=== PATIENT | male | born 1995 | race Caucasian/White ===

== ENCOUNTER 2021-04-11 23:33 | Inpatient (IN) | payer MEDICAID ==
[~2021-04-11] VITALS: Ht 185.4 cm; Wt 136.5 kg
[2021-04-12] VITALS (619 sets, daily range): BP systolic 102–147; BP diastolic 60–98; PULSE 84–105; TEMP 97.4–99.1; O2SAT 64–97
[2021-04-12 00:06] LABS: BASO % 0.2 % (0.0-2.0); GRAN # 7.2 (1.4-6.5); GRAN % 80.4 % (42.2-75.2); HEMATOCRIT 50.6 % (42.0-52.0); HEMOGLOBIN 16.7 g/dl (13.5-18.0); LYMPH # 1.3 (1.2-3.4); MEAN CELL VOLUME 87 fl (80.0-100.0); MEAN CORPUSCULAR HEMOGLOBIN 29 pg (27.0-31.0); MEAN CORPUSCULAR HGB CONC 33 g/dl (33.0-37.0); MEAN PLATELET VOLUME 11.7 fl (7.4-10.4); MONO # 0.4 (0.1-0.6); MONO % 4.8 % (1.7-9.3); PLATELET COUNT 242 K/mm3 (130-400); RED BLOOD COUNT 5.84 M/mm3 (4.20-5.60); REDCELL DISTRIBUTION WIDTH-CV 14.4 % (11.5-14.5)
[2021-04-12 00:19] LABS: ALBUMIN 4.1 gm/dL (3.5-5.0); BILIRUBIN,TOTAL 0.7 mg/dL (0.0-1.0); C-REACTIVE PROTEIN 7.3 mg/dL (0.0-0.9); CALCIUM 8.2 mg/dL (8.4-10.2); CREATININE, serum 2.58 (0.66-1.25); POTASSIUM 3.8 mmol/L (3.4-5.0); TOTAL PROTEIN 8.5 gm/dL (6.4-8.2)
[2021-04-12 00:34] LABS: ARTERIAL BLD GAS O2 SATURATION 81.5 % (92-100); ARTERIAL BLD GAS TCO2 CT 23.9; ARTERIAL BLOOD GAS BASE EXCESS -1.9 (-2-2); ARTERIAL BLOOD GAS HCO3 22.7 meq/L (22-26); ARTERIAL BLOOD GAS PCO2 38.6 mmHg (35-45); ARTERIAL BLOOD GAS pH 7.39 (7.35-7.45)
[2021-04-12 00:35] LABS: ARTERIAL BLOOD GAS PO2 45.5 mmHg (80-100)
[2021-04-12 00:40] LABS: TROPONIN-I 0.024 ng/mL (0.000-0.035)
--- NOTE | 2021-04-12 02:05 | NUR ---
Pt arrived to ICU room 1 via cart with JAMEEL Santiago RN. Pt transferred from the cart to the ICU bed with the assistance of six. Pt oriented to room and call light system. Pt is sitting up in the bed at this time with the BiPAP in place. Call light within reach.
[2021-04-12 02:49] LABS: CALCIUM 7.8 mg/dL (8.4-10.2); CREATININE, serum 2.65 (0.66-1.25)
[2021-04-12 02:56] LABS: PARTIAL THROMBOPLASTIN TIME 38.3 SECONDS (26.0-37.0)
[2021-04-12 05:27] LABS: ARTERIAL BLD GAS O2 SATURATION 91.7 % (92-100); ARTERIAL BLD GAS TCO2 CT 23.6; ARTERIAL BLOOD GAS BASE EXCESS -4.4 (-2-2); ARTERIAL BLOOD GAS HCO3 22.2 meq/L (22-26); ARTERIAL BLOOD GAS PCO2 46.4 mmHg (35-45)
--- NOTE | 2021-04-12 07:26 | NUR ---
Bedside shift report given to AWAIS Tello.
--- NOTE | 2021-04-12 08:00 | NUR ---
Report received. Patient currently on Bipap at max settings SPO2 is at 88%. He does not appear to be in distress, but is tachypneic. Dr. Gaston aware of consult and patient situation.
--- NOTE | 2021-04-12 09:00 | NUR ---
Stephan Chawla and Eric notified of consults
[2021-04-12 09:03] LABS: BASO % 0.1 % (0.0-2.0); GRAN # 6.2 (1.4-6.5); GRAN % 84.3 % (42.2-75.2); HEMATOCRIT 47.6 % (42.0-52.0); HEMOGLOBIN 15.4 g/dl (13.5-18.0); LYMPH # 0.9 (1.2-3.4); LYMPH % 12.3 % (20.0-51.0); MEAN CELL VOLUME 89 fl (80.0-100.0); MEAN CORPUSCULAR HEMOGLOBIN 29 pg (27.0-31.0); MEAN CORPUSCULAR HGB CONC 32 g/dl (33.0-37.0); MEAN PLATELET VOLUME 12.1 fl (7.4-10.4); MONO # 0.2 (0.1-0.6); MONO % 2.8 % (1.7-9.3); PLATELET COUNT 186 K/mm3 (130-400); RED BLOOD COUNT 5.36 M/mm3 (4.20-5.60); REDCELL DISTRIBUTION WIDTH-CV 14.6 % (11.5-14.5)
[2021-04-12 09:21] LABS: CALCIUM 7.4 mg/dL (8.4-10.2); CREATININE, serum 2.3 (0.66-1.25); POTASSIUM 4.6 mmol/L (3.4-5.0)
--- NOTE | 2021-04-12 09:30 | NUR ---
Dr. Gaston orders intubation on this patient. Anesthesia called and Dr. Razo notified of need for TLC
--- NOTE | 2021-04-12 12:30 | NUR ---
Patient intubated by Rhea Kumar CRNA at approx 1151. Patient then received Art line from same NEWSPAPER CARRIER and Triple lumen Central line in left IJ from Dr. Razo. Dr. Gaston on unit during this time. Sedation of propofol and fentanyl started at 1202. OG tube placed and confirmed with gastric contents. Ceja Catheter placed and UA sent.
[2021-04-12 14:06] LABS: COLLECTION METHOD CATHETER
[2021-04-12 14:26] LABS: ARTERIAL BLD GAS TCO2 CT 21.4; ARTERIAL BLOOD GAS BASE EXCESS -5.9 (-2-2); ARTERIAL BLOOD GAS HCO3 20.1 meq/L (22-26); ARTERIAL BLOOD GAS PCO2 41.4 mmHg (35-45); ARTERIAL BLOOD GAS PO2 108.4 mmHg (80-100)
[2021-04-12 14:35] LABS: MUCOUS Present /lpf; PH 5 (5-8); URINE APPEARANCE Cloudy; URINE BACTERIA Rare /hpf; URINE BILIRUBIN Negative (NEGATIVE); URINE BLOOD 2+ (NEGATIVE); URINE COLOR Amber; URINE GLUCOSE Negative (NEGATIVE); URINE KETONE Negative (NEGATIVE); URINE LEUKOCYTE ESTERASE Negative (NEGATIVE); URINE NITRATE Negative (NEGATIVE); URINE PROTEIN(semi-quant) 2+ (NEGATIVE); URINE RBC 0-2 /hpf; URINE UROBILINOGEN Negative (NEGATIVE)
--- NOTE | 2021-04-12 19:31 | NUR ---
Report received from AWAIS Calderon
--- NOTE | 2021-04-12 19:33 | NUR ---
Report given to AWAIS Calderon
[2021-04-12 19:45] LABS: ARTERIAL BLD GAS O2 SATURATION 97.6 % (92-100); ARTERIAL BLD GAS TCO2 CT 20.9; ARTERIAL BLOOD GAS BASE EXCESS -5.8 (-2-2); ARTERIAL BLOOD GAS HCO3 19.7 meq/L (22-26); ARTERIAL BLOOD GAS PCO2 38.8 mmHg (35-45); ARTERIAL BLOOD GAS PO2 99.8 mmHg (80-100); ARTERIAL BLOOD GAS pH 7.32 (7.35-7.45)
[2021-04-13] VITALS (318 sets, daily range): BP systolic 99–113; BP diastolic 56–64; PULSE 73–85; TEMP 98.6–99.5; O2SAT 71–96
[2021-04-13 03:50] LABS: ARTERIAL BLD GAS O2 SATURATION 96.3 % (92-100); ARTERIAL BLD GAS TCO2 CT 22.4; ARTERIAL BLOOD GAS BASE EXCESS -4.2 (-2-2); ARTERIAL BLOOD GAS HCO3 21.2 meq/L (22-26); ARTERIAL BLOOD GAS PCO2 40.1 mmHg (35-45); ARTERIAL BLOOD GAS pH 7.34 (7.35-7.45)
[2021-04-13 04:58] LABS: GRAN % 84.6 % (42.2-75.2); HEMATOCRIT 40.7 % (42.0-52.0); LYMPH # 0.8 (1.2-3.4); LYMPH % 9.6 % (20.0-51.0); MEAN CELL VOLUME 88 fl (80.0-100.0); MEAN CORPUSCULAR HEMOGLOBIN 29 pg (27.0-31.0); MEAN CORPUSCULAR HGB CONC 33 g/dl (33.0-37.0); MEAN PLATELET VOLUME 13.1 fl (7.4-10.4); MONO # 0.4 (0.1-0.6); MONO % 5.3 % (1.7-9.3); PLATELET COUNT 192 K/mm3 (130-400); RED BLOOD COUNT 4.65 M/mm3 (4.20-5.60); REDCELL DISTRIBUTION WIDTH-CV 14.5 % (11.5-14.5)
[2021-04-13 05:04] LABS: HEMOGLOBIN 13.3 g/dl (13.5-18.0)
[2021-04-13 05:14] LABS: ALBUMIN 3.2 gm/dL (3.5-5.0); BILIRUBIN,TOTAL 0.3 mg/dL (0.0-1.0); CREATININE, serum 2.79 (0.66-1.25); MAGNESIUM 1.7 mg/dL (1.6-2.3); PHOSPHOROUS 4.3 mg/dL (2.5-4.5); POTASSIUM 4.5 mmol/L (3.4-5.0); TOTAL PROTEIN 6.7 gm/dL (6.4-8.2)
--- NOTE | 2021-04-13 05:32 | NUR ---
PUMPS PAUSED SEDATION FOR BRIEF TIME. PT WOKE UP QUICKLY AND REMAINED RELATIVELY CALM. ANYTIME PT WOKE UP OVERNIGHT HE WOULD COUGH UNTIL RESEDATED. AFTER SEDATION VACATION SATS INCREASED FROM 90-95%. PT HAS NOT FOLLOWED COMMANDS BUT OPENS EYES SPONTANEOUSLY AND SLIGHTLY MOVES EXTREMETIES.
--- NOTE | 2021-04-13 07:00 | NUR ---
UPDATED PTS MOTHER ON HIS BEING INTUBATED AND PLAN OF CARE. PT SATS BETTER THIS AM IN MID TO UPPER 90S. SEDATION KEPT THE SAME EXCEPT DURING SEDATION VACATION(SEE NOTE). BPS SOFT BUT WNL. URINIE OUTPUT BOREDERLINE LOW BUT WNL. TEMP UP TO 99.0 THIS AM. PT COUGHS AGGRESSIVELY WHEN WOKEN UP AND SATS DROPPED TO 83% WITH COUGHING FIT AFTER TURNING AND BOOSTING. RECOVERED INTO HIGH 90% WITHIN 1-2 MINUTES AND HAS SUSTAINED SATS SINCE. OTHER VS REMEAINED STABLE.
[2021-04-13 22:33] LABS: ARTERIAL BLD GAS O2 SATURATION 92.6 % (92-100); ARTERIAL BLD GAS TCO2 CT 22.9; ARTERIAL BLOOD GAS BASE EXCESS -3.9 (-2-2); ARTERIAL BLOOD GAS HCO3 21.6 meq/L (22-26); ARTERIAL BLOOD GAS PCO2 40.8 mmHg (35-45); ARTERIAL BLOOD GAS PO2 65.5 mmHg (80-100); ARTERIAL BLOOD GAS pH 7.34 (7.35-7.45)
[2021-04-13 23:57] LABS: CALCIUM 6.9 mg/dL (8.4-10.2); CREATININE, serum 3.24 (0.66-1.25); POTASSIUM 3.8 mmol/L (3.4-5.0)
[2021-04-14] VITALS (875 sets, daily range): BP systolic 100–147; BP diastolic 66–92; PULSE 63–82; TEMP 98–98.7; O2SAT 83–99
--- NOTE | 2021-04-14 02:31 | NUR ---
PT TURNED AND BEGAN COUGHING. UNABLE TO RESOLVE COUGHING. RR BETWEEN 35-40 SUSTAINED. INCREASED FENTANYL TO ATTEMP TO DECREASE RESPIRATIONS AND SETTLE PT.
--- NOTE | 2021-04-14 02:32 | NUR ---
CALM BUT OVERBREATHING VENT, RR 35 AGAIN COINCIDING WITH TURNING/BATHING.
--- NOTE | 2021-04-14 02:41 | NUR ---
FLUSHED SCRUGGS AROUND 2100 DT LOW UOP FOR PREVIOUS SHIFT AND NO OUT PUT ON THIS SHIFT. NO URINE RETURNED AFTER FLUSHING. SEDIMENT NOTED. SEVERAL HOURS LATER AROUNS 0200, BED FOUND WET AND VISUALIZED PT PEEING AROUND CATHETER. CHECKED BALLOON, IT WAS INTACT WITH APPROX 9 ML OF FLUID. CATHETER REMOVED AND NEW SCRUGGS PLACED. ESTIMATED AT LEAST 500 ML OF FLUID ON THE BED AND URINE CATCHING IN CATHTER (APPROX 100-150 IN BAG COLLECTED).
[2021-04-14 04:05] LABS: BASO % 0.1 % (0.0-2.0); GRAN # 6.2 (1.4-6.5); GRAN % 84.9 % (42.2-75.2); HEMATOCRIT 39.1 % (42.0-52.0); HEMOGLOBIN 12.8 g/dl (13.5-18.0); LYMPH # 0.5 (1.2-3.4); LYMPH % 6.8 % (20.0-51.0); MEAN CELL VOLUME 87 fl (80.0-100.0); MEAN CORPUSCULAR HEMOGLOBIN 28 pg (27.0-31.0); MEAN CORPUSCULAR HGB CONC 33 g/dl (33.0-37.0); MEAN PLATELET VOLUME 12.8 fl (7.4-10.4); MONO # 0.5 (0.1-0.6); MONO % 7.4 % (1.7-9.3); PLATELET COUNT 210 K/mm3 (130-400); RED BLOOD COUNT 4.51 M/mm3 (4.20-5.60); REDCELL DISTRIBUTION WIDTH-CV 14.4 % (11.5-14.5)
[2021-04-14 04:11] LABS: ARTERIAL BLD GAS O2 SATURATION 98.6 % (92-100); ARTERIAL BLD GAS TCO2 CT 22.3; ARTERIAL BLOOD GAS BASE EXCESS -3.9 (-2-2); ARTERIAL BLOOD GAS HCO3 21.1 meq/L (22-26); ARTERIAL BLOOD GAS PCO2 38.5 mmHg (35-45); ARTERIAL BLOOD GAS PO2 140.9 mmHg (80-100); ARTERIAL BLOOD GAS pH 7.36 (7.35-7.45)
[2021-04-14 04:20] LABS: BILIRUBIN,TOTAL 0.3 mg/dL (0.0-1.0); C-REACTIVE PROTEIN 6.5 mg/dL (0.0-0.9); CALCIUM 6.8 mg/dL (8.4-10.2); CREATININE, serum 3.28 (0.66-1.25); MAGNESIUM 1.8 mg/dL (1.6-2.3); PHOSPHOROUS 5.3 mg/dL (2.5-4.5); POTASSIUM 3.8 mmol/L (3.4-5.0); TOTAL PROTEIN 6.4 gm/dL (6.4-8.2)
--- NOTE | 2021-04-14 06:40 | NUR ---
PT FOLLOWS COMMANDS AT THIS LEVEL OF SEDATION. SLOWLY TITRATING. PT GET VERY TACHYPENIC ON LOW SEDATION. HAS BEEN TOLERATING TITRATIONS WELL THIS AM.
--- NOTE | 2021-04-14 07:00 | NUR ---
PT IS INTUBATED AND SEDATED. PT IS ON FENT, PROPOFOL, NS, INSULIN, AND BICARB DRIP. VSS. WILL CONTINUE TO MONITOR.
--- NOTE | 2021-04-14 11:54 | NUR ---
SW attempted to contact patient's sister Mel [phone], unable to reach. MARIBELL contacted Sherry Behzad's financal contact to inform of patient's status and to assess. Sherry stated that she would make notation of information provided and inform Camille Ayala up on her return. MARIBELL will continue to follow.
--- NOTE | 2021-04-14 16:30 | NUR ---
JOSE JUAN BURLESON WITH HERE TO ASSESS PT. NOTIFIED OF HER OF REQUEST FOR THEM TO ADDRESS IVF, BICARB DRIP, AND PLANS FOR DECREASING KIDNEY FUNCTION.
--- NOTE | 2021-04-14 17:00 | NUR ---
PT REPOSITIONED IN BED. PT MOVES ALL EXTREMETIES. PT BECAME TACHYPNIC. FENT INCREASED. OTHER VSS. WILL CONTINUE TO MONTIOR.
--- NOTE | 2021-04-14 22:15 | NUR ---
UNABLE TO CALM PT. SUCTIONED/CHECKED VENT. RR REMAIN 35-40 AND COUGHING.
--- NOTE | 2021-04-14 22:16 | NUR ---
OVERBREATHING 30-35 RR.
[2021-04-15] VITALS (535 sets, daily range): BP systolic 112–143; BP diastolic 63–79; PULSE 82–92; TEMP 98–99.6; O2SAT 77–99
[2021-04-15 03:41] LABS: ARTERIAL BLD GAS O2 SATURATION 89.6 % (92-100); ARTERIAL BLD GAS TCO2 CT 22.5; ARTERIAL BLOOD GAS BASE EXCESS -3.4 (-2-2); ARTERIAL BLOOD GAS HCO3 21.3 meq/L (22-26); ARTERIAL BLOOD GAS PCO2 37.3 mmHg (35-45); ARTERIAL BLOOD GAS PO2 59.2 mmHg (80-100); ARTERIAL BLOOD GAS pH 7.38 (7.35-7.45)
[2021-04-15 05:33] LABS: HEMATOCRIT 38.9 % (42.0-52.0); HEMOGLOBIN 12.8 g/dl (13.5-18.0); MEAN CELL VOLUME 87 fl (80.0-100.0); MEAN CORPUSCULAR HEMOGLOBIN 29 pg (27.0-31.0); MEAN CORPUSCULAR HGB CONC 33 g/dl (33.0-37.0); MEAN PLATELET VOLUME 12.2 fl (7.4-10.4); PLATELET COUNT 239 K/mm3 (130-400); RED BLOOD COUNT 4.49 M/mm3 (4.20-5.60); REDCELL DISTRIBUTION WIDTH-CV 14.6 % (11.5-14.5)
[2021-04-15 05:44] LABS: ALBUMIN 2.8 gm/dL (3.5-5.0); BILIRUBIN,TOTAL 0.3 mg/dL (0.0-1.0); CALCIUM 6.7 mg/dL (8.4-10.2); CREATININE, serum 2.6 (0.66-1.25); MAGNESIUM 2.2 mg/dL (1.6-2.3); PHOSPHOROUS 4.9 mg/dL (2.5-4.5); POTASSIUM 3.7 mmol/L (3.4-5.0)
[2021-04-15 05:48] LABS: BAND 9 % (0-10); HYPOCHROMIA 1+; LYMPHOCYTE 7 % (20.0-51.0); NEUTROPHILS 81 % (42.0-75.2); PLATELET ESTIMATE NORMAL (NORMAL)
--- NOTE | 2021-04-15 07:15 | NUR ---
REPORT RECEIVED ON THIS PATIENT FROM AWAIS GUERRA. PATIENT ASSESSED AND BLOOD SUGAR CHECKED PER INSULIN GTT PROTOCOL. WILL CONTINUE TO MONITOR.
--- NOTE | 2021-04-15 08:48 | NUR ---
DID NOT DO SEDATION VACATION. WAS ABLE TO DECREASE PROPOFOL TO 30 MCG/KG/MIN BUT AM ABG SHOWED LOW POS AND PT HAS BEEN OVERBREATHING VENT OFTEN. GAVE VEC TO HELP HIM TOLERATE VENT SETTINGS. PRIOR TO VEC PUSH, PT WAS ABLE TO FOLLOW COMMANDS.
--- NOTE | 2021-04-15 08:57 | NUR ---
PT WOULD OVRBREATHE VENT WHEN TURNED OR STIMULATED FOR NEURO CHECKS AT APPROX 35-40 BPM. ALY PUSH GIVEN IN AM AFTER ABG SHOWED LOW PO2. HELPED TREMENDOUSLY. PT RR LESS FORCED AND SATS INCREASED TO 95%. UOP REMAINED QDEQUATE AND SCRUGGS PATENT. INSULIN DRIP AT 24.5 U/H AND BG STILL 160-180S. STARTED PO BICARB.
--- NOTE | 2021-04-15 09:00 | NUR ---
DR. MÁRQUEZ HERE TO SEE PATIENT. HE REMAINS ON VENTILATOR, INSULIN GTT, AND SEDATION. WILL CONTINUE TO MONITOR
--- NOTE | 2021-04-15 12:00 | NUR ---
DR. MCHUGH GIVES ORDER TO STOP IV SODIUM BICARB AFTER THE CURRENT BAG THAT IS HANGING IS FINISHED.
--- NOTE | 2021-04-15 12:09 | NUR ---
MARIBELL completed intake with mother Kristin Awad. Mother stated that patient does not utilize any DME and is independent with ADL's. Mother states that patient does not have a PCP and utilizes [facility]. Mother provides that patient does not have a DPOA-HC. Mother states that she knows her son needs assistance with care, but is unsure of what his plan will be upon discharge at this time. SW will continue to follow.
--- NOTE | 2021-04-15 14:00 | NUR ---
Dr. Gaston contact regarding large thick yellow sputum being suctioned out of ETtube with saline bullets to help lavage. Orders received for mucomyst q6hrs
--- NOTE | 2021-04-15 17:00 | NUR ---
PATIENT MOVED TO DIFFERENT BARIATRIC BED. HE TOLERATED WELL .
--- NOTE | 2021-04-15 19:10 | NUR ---
REPORT GIVEN TO AWAIS POOLE
--- NOTE | 2021-04-15 20:05 | NUR ---
Assessment complete and charted. Patient repositioned.
--- NOTE | 2021-04-15 20:14 | NUR ---
UPDATE CALLED TO PATIENT'S MOTHER, MAGDALENO. QUESTIONS ANSWERED AND PLAN OF CARE DISCUSSED. SHE IS TOLD ABOUT THE ABILITY TO VIDEO CALL WITH PATIENT IN ROOM. SHE IS GIVEN THE DAISY INFORMATION. SHE IS ALSO GIVEN INFORMATION FOR ICU PHONE NUMBER AND PRIVACY PASSCODE. PHONE NUMBERS ADDED TO PAPER CHART. MAGDALENO ZULETA [phone] MOTHER [phone] KRISTEN ZULETA [phone] FATHER DOMINGA YOO [phone],
[2021-04-16] VITALS (633 sets, daily range): BP systolic 120–133; BP diastolic 65–78; PULSE 72–122; TEMP 98.9–99.8; O2SAT 77–97
--- NOTE | 2021-04-16 00:13 | NUR ---
Assessment complete and charted. Resting in bed. Listens to verbal commands while awake.
--- NOTE | 2021-04-16 04:57 | NUR ---
Assessment complete and charted. Patient noted to have white milky tears. Deisy GLASGOW notifed. No new orders at this time. Patient continues to tolerate sedation.
--- NOTE | 2021-04-16 06:50 | NUR ---
Patient resting in bed this AM. Sedation vacation complete. Patient able to follow simple directions. Patient only had 1 episode of milky/white tears. Continues on insulin gtt.
[2021-04-16 07:00] LABS: HEMATOCRIT 38.1 % (42.0-52.0); HEMOGLOBIN 12.3 g/dl (13.5-18.0); MEAN CELL VOLUME 88 fl (80.0-100.0); MEAN CORPUSCULAR HEMOGLOBIN 29 pg (27.0-31.0); MEAN CORPUSCULAR HGB CONC 32 g/dl (33.0-37.0); MEAN PLATELET VOLUME 12.4 fl (7.4-10.4); PLATELET COUNT 249 K/mm3 (130-400); RED BLOOD COUNT 4.32 M/mm3 (4.20-5.60); REDCELL DISTRIBUTION WIDTH-CV 14.6 % (11.5-14.5)
--- NOTE | 2021-04-16 07:46 | NUR ---
Report given to AWAIS Barajas
[2021-04-16 07:53] LABS: BAND 10 % (0-10); METAMYELOCYTE 1 % (0-0); NEUTROPHILS 69 % (42.0-75.2)
[2021-04-16 07:54] LABS: LYMPHOCYTE 8 % (20.0-51.0); PLATELET ESTIMATE NORMAL (NORMAL)
[2021-04-16 08:04] LABS: CALCIUM 6.9 mg/dL (8.4-10.2); CREATININE, serum 1.87 (0.66-1.25)
--- NOTE | 2021-04-16 15:20 | NUR ---
PT is sedated and continues to breathe over the vent creating high pressure alarms and proper tidal volume is not being deliverd. PT desats. Dr. Gaston called and a vecuronium drip was requested. Dr. Gaston agreed and ordered titratable Vecuronium drip with train of four monitoring.
--- NOTE | 2021-04-16 19:10 | NUR ---
Shift report given to AWAIS Murray.
--- NOTE | 2021-04-16 21:42 | NUR ---
Assessment complete and charted. Patient incontinent of bowel. Cares provided. Stool liquid. Obtained order from Brittany BURLESON for rectal tube.
--- NOTE | 2021-04-16 22:30 | NUR ---
Rectal tube placed. Bath and linen change complete. Patient tachy 120s after. Increased fentanyl and decreased stimulation.
[2021-04-17] VITALS (770 sets, daily range): BP systolic 104–146; BP diastolic 67–99; PULSE 72–126; TEMP 99.1–101.1; O2SAT 68–100
--- NOTE | 2021-04-17 04:57 | NUR ---
Train of four failed with last assessment. Titrating off vec at this time
[2021-04-17 05:09] LABS: HEMATOCRIT 39.8 % (42.0-52.0); HEMOGLOBIN 12.3 g/dl (13.5-18.0); MEAN CELL VOLUME 91 fl (80.0-100.0); MEAN CORPUSCULAR HEMOGLOBIN 28 pg (27.0-31.0); MEAN CORPUSCULAR HGB CONC 31 g/dl (33.0-37.0); MEAN PLATELET VOLUME 12.2 fl (7.4-10.4); PLATELET COUNT 285 K/mm3 (130-400); REDCELL DISTRIBUTION WIDTH-CV 15.3 % (11.5-14.5)
[2021-04-17 05:14] LABS: CALCIUM 7.8 mg/dL (8.4-10.2); CREATININE, serum 1.68 (0.66-1.25); POTASSIUM 4.2 mmol/L (3.4-5.0)
[2021-04-17 05:47] LABS: ANISOCYTOSIS 1+; BAND 8 % (0-10); HYPOCHROMIA 2+; LYMPHOCYTE 17 % (20.0-51.0); METAMYELOCYTE 2 % (0-0); NEUTROPHILS 66 % (42.0-75.2); PLATELET ESTIMATE NORMAL (NORMAL)
--- NOTE | 2021-04-17 06:38 | NUR ---
Patient resting in bed. Repositioned with turned assist on bed throughout night. Tidal volumes increased this AM to 850-900. Respiratory therapy aware. Titrated drips as needed throughout night. Rectal tube was placed earlier in night due to liquid stools.
--- NOTE | 2021-04-17 07:22 | NUR ---
Report given to AWAIS Barajas
--- NOTE | 2021-04-17 07:33 | NUR ---
Dr. Gaston in to see patient, orders received for sedation, restraints and insulin, please see eMAR.
[2021-04-17 08:07] LABS: ARTERIAL BLD GAS O2 SATURATION 95.3 % (92-100); ARTERIAL BLD GAS TCO2 CT 28.7; ARTERIAL BLOOD GAS BASE EXCESS 2.6 (-2-2); ARTERIAL BLOOD GAS HCO3 27.4 meq/L (22-26); ARTERIAL BLOOD GAS pH 7.42 (7.35-7.45)
--- NOTE | 2021-04-17 10:00 | NUR ---
VENT CHANGED OUT PER FOR HIGH TIDAL VOLUMES. TIDAL VOLUME DECREASED TO 550. ATTEMPT TO ADVANCE TUBE 2 CM UNSUCCESSFUL PT CLAMPING DOWN ON TUBE. NOTIFIED, WILL TRY AGAIN LATER.
[2021-04-17 15:06] LABS: ARTERIAL BLD GAS O2 SATURATION 95.9 % (92-100); ARTERIAL BLD GAS TCO2 CT 31.1; ARTERIAL BLOOD GAS BASE EXCESS 2.6 (-2-2); ARTERIAL BLOOD GAS HCO3 29.4 meq/L (22-26); ARTERIAL BLOOD GAS PCO2 54.4 mmHg (35-45); ARTERIAL BLOOD GAS PO2 85.4 mmHg (80-100); ARTERIAL BLOOD GAS pH 7.35 (7.35-7.45)
--- NOTE | 2021-04-17 19:33 | NUR ---
PT SHIFT REPORT GIVEN TO AWAIS COTTON
[2021-04-18] VITALS (503 sets, daily range): BP systolic 123–155; BP diastolic 68–98; PULSE 67–112; TEMP 99–99.9; O2SAT 85–100
[2021-04-18 05:01] LABS: ARTERIAL BLD GAS O2 SATURATION 92.9 % (92-100); ARTERIAL BLD GAS TCO2 CT 29.5; ARTERIAL BLOOD GAS PO2 68.6 mmHg (80-100); ARTERIAL BLOOD GAS pH 7.38 (7.35-7.45)
[2021-04-18 05:56] LABS: HEMOGLOBIN 12.8 g/dl (13.5-18.0); MEAN CELL VOLUME 93 fl (80.0-100.0); MEAN CORPUSCULAR HEMOGLOBIN 28 pg (27.0-31.0); MEAN CORPUSCULAR HGB CONC 31 g/dl (33.0-37.0); MEAN PLATELET VOLUME 11.4 fl (7.4-10.4); PLATELET COUNT 304 K/mm3 (130-400); RED BLOOD COUNT 4.53 M/mm3 (4.20-5.60); REDCELL DISTRIBUTION WIDTH-CV 15.6 % (11.5-14.5)
--- NOTE | 2021-04-18 05:56 | NUR ---
PT DOES NOT QUALIFY FOR WEAN TRIAL. ON DOCUMENTED SETTINGS
[2021-04-18 06:06] LABS: CALCIUM 8.4 mg/dL (8.4-10.2); CREATININE, serum 1.46 (0.66-1.25); POTASSIUM 4.8 mmol/L (3.4-5.0)
[2021-04-18 06:10] LABS: BAND 9 % (0-10); EOSINOPHIL 2 % (0-4); HYPOCHROMIA 2+; LYMPHOCYTE 15 % (20.0-51.0); METAMYELOCYTE 4 % (0-0); NEUTROPHILS 62 % (42.0-75.2); PLATELET ESTIMATE NORMAL (NORMAL)
--- NOTE | 2021-04-18 06:14 | NUR ---
PATIENT FIGHT VENT MOST OF SHIFT, NOW ASLEEP SO LEFT ALONE...
--- NOTE | 2021-04-18 11:11 | NUR ---
PT had some stool incontinence around rectal tube. Two RNs and PT in to clean up patient. Bedding changed. Bed bath given. Urinary catheter cleaned. PT boosted up and repositioned in bed.
--- NOTE | 2021-04-18 17:51 | NUR ---
pt SEDATION WAS DECREASED FOR SEDATION VACATION. AT 1751 PT WAS FIGHTING THE VENT. WHEN ASKED PT WAS ABLE TO OPEN EYES AND SQUEEZE BOTH OF HIS HANDS. PT BEGAN TRYING TO SIT UP IN BED. SPO2 DROPPED TO 88%. SEDATION WAS INCREASED AT THIS TIME.
--- NOTE | 2021-04-18 19:05 | NUR ---
PT REPORT GIVEN TO AWAIS COTTON.
--- NOTE | 2021-04-18 22:16 | NUR ---
TRAIN OF FOUR NOT IN USE NO VEC ADMINISTERED AT THIS TIME
[2021-04-19] VITALS (843 sets, daily range): BP systolic 132–159; BP diastolic 59–789; PULSE 69–89; TEMP 99–101.1; O2SAT 75–100
[2021-04-19 05:14] LABS: ARTERIAL BLD GAS O2 SATURATION 96.8 % (92-100); ARTERIAL BLOOD GAS BASE EXCESS 3.4 (-2-2); ARTERIAL BLOOD GAS HCO3 28.6 meq/L (22-26); ARTERIAL BLOOD GAS PCO2 45.4 mmHg (35-45); ARTERIAL BLOOD GAS PO2 86.8 mmHg (80-100); ARTERIAL BLOOD GAS pH 7.42 (7.35-7.45)
--- NOTE | 2021-04-19 05:23 | NUR ---
PT DOES NOT QUALIFY FOR WEANING TRIAL DUE TO TOO HIGH OF PEEP AND FI02. PT ON DOCUMENTED SETTINGS.
[2021-04-19 05:29] LABS: HEMATOCRIT 43.3 % (42.0-52.0); HEMOGLOBIN 13.4 g/dl (13.5-18.0); MEAN CELL VOLUME 92 fl (80.0-100.0); MEAN CORPUSCULAR HEMOGLOBIN 28 pg (27.0-31.0); MEAN CORPUSCULAR HGB CONC 31 g/dl (33.0-37.0); MEAN PLATELET VOLUME 11.1 fl (7.4-10.4); PLATELET COUNT 310 K/mm3 (130-400); RED BLOOD COUNT 4.73 M/mm3 (4.20-5.60); REDCELL DISTRIBUTION WIDTH-CV 15.3 % (11.5-14.5)
[2021-04-19 05:40] LABS: CALCIUM 8.8 mg/dL (8.4-10.2); CREATININE, serum 1.32 (0.66-1.25)
[2021-04-19 05:43] LABS: BAND 6 % (0-10); EOSINOPHIL 3 % (0-4); HYPOCHROMIA 2+; LYMPHOCYTE 13 % (20.0-51.0); METAMYELOCYTE 4 % (0-0); NEUTROPHILS 64 % (42.0-75.2); PLATELET ESTIMATE NORMAL (NORMAL)
--- NOTE | 2021-04-19 07:15 | NUR ---
RECEIVED REPORT FROM AWAIS COTTON. PATIENT CURRENTLY ON SEDATION VACATION. RESTING COMFORTABLY ON THE VENTILATOR. SCRUGGS CATHETER IN PLACE, PATENT AND DRAINING TO GRAVITY. FECAL MANAGEMENT SYSTEM IN PLACE WITH SMALL LEAKAGE. TLC IN INTERNAL JUGULAR IN PLACE. TUBEFEEDING IN PROGRESS AND INSULIN GTT STILL RUNNING. SEE GTT TITRATION FLOWSHEET.
[2021-04-20] VITALS (696 sets, daily range): BP systolic 111–155; BP diastolic 31–92; PULSE 60–93; TEMP 99.4–101; O2SAT 88–100
[2021-04-20 05:26] LABS: ARTERIAL BLD GAS O2 SATURATION 96.2 % (92-100); ARTERIAL BLD GAS TCO2 CT 29.7; ARTERIAL BLOOD GAS BASE EXCESS 2.8 (-2-2); ARTERIAL BLOOD GAS HCO3 28.3 meq/L (22-26); ARTERIAL BLOOD GAS PCO2 46.8 mmHg (35-45)
[2021-04-20 05:50] LABS: HEMATOCRIT 43.3 % (42.0-52.0); HEMOGLOBIN 13.4 g/dl (13.5-18.0); MEAN CELL VOLUME 92 fl (80.0-100.0); MEAN CORPUSCULAR HEMOGLOBIN 28 pg (27.0-31.0); MEAN CORPUSCULAR HGB CONC 31 g/dl (33.0-37.0); MEAN PLATELET VOLUME 11.1 fl (7.4-10.4); PLATELET COUNT 292 K/mm3 (130-400); RED BLOOD COUNT 4.73 M/mm3 (4.20-5.60); REDCELL DISTRIBUTION WIDTH-CV 14.8 % (11.5-14.5)
[2021-04-20 06:01] LABS: CALCIUM 8.9 mg/dL (8.4-10.2); CREATININE, serum 1.18 (0.66-1.25); POTASSIUM 5.5 mmol/L (3.4-5.0)
--- NOTE | 2021-04-20 06:04 | NUR ---
PATIENT COUGHING AGAINST VENT 1 HOUR OF SEDATION VACATION DRIPS BACK TO REGULAR DOSE
[2021-04-20 06:10] LABS: BAND 7 % (0-10); EOSINOPHIL 2 % (0-4); LYMPHOCYTE 19 % (20.0-51.0); NEUTROPHILS 62 % (42.0-75.2); PLATELET ESTIMATE NORMAL (NORMAL)
--- NOTE | 2021-04-20 07:20 | NUR ---
RECEIVED REPORT FROM AWAIS COTTON. PATIENT RESTING COMFORTABLY ON VENTILATOR WITH OCCASIONAL COUGHING. SEE GTT TITRATION FLOWSHEET. SCRUGGS CATHETER IN PLACE, DRAINING TO GRAVITY. TLC IN INTERNAL JUGULAR IN PLACE. FECAL MANAGEMENT SYSTEM IN PLACE. ON SEDATION VACATION AT THE MOMENT. VSS AT THIS TIME.
--- NOTE | 2021-04-20 17:23 | NUR ---
PATIENT ON MINIMAL SEDATION TO HANDLE FOR PATIENT'S BASELINE.
[2021-04-21] VITALS (594 sets, daily range): BP systolic 82–148; BP diastolic 52–90; PULSE 63–122; TEMP 98.4–99.9; O2SAT 81–100
[2021-04-21 04:59] LABS: HEMATOCRIT 45.4 % (42.0-52.0); HEMOGLOBIN 14.2 g/dl (13.5-18.0); MEAN CELL VOLUME 91 fl (80.0-100.0); MEAN CORPUSCULAR HEMOGLOBIN 28 pg (27.0-31.0); MEAN CORPUSCULAR HGB CONC 31 g/dl (33.0-37.0); MEAN PLATELET VOLUME 11.3 fl (7.4-10.4); PLATELET COUNT 283 K/mm3 (130-400); REDCELL DISTRIBUTION WIDTH-CV 14.2 % (11.5-14.5)
[2021-04-21 05:10] LABS: ALBUMIN 3.1 gm/dL (3.5-5.0); BILIRUBIN,TOTAL 0.6 mg/dL (0.0-1.0); CREATININE, serum 1.14 (0.66-1.25); POTASSIUM 5.3 mmol/L (3.4-5.0); TOTAL PROTEIN 6.5 gm/dL (6.4-8.2)
[2021-04-21 05:17] LABS: PRE ALBUMIN 40.3 mg/dL (17.6-36.0)
[2021-04-21 05:25] LABS: ARTERIAL BLD GAS TCO2 CT 32.4; ARTERIAL BLOOD GAS BASE EXCESS 3.1 (-2-2); ARTERIAL BLOOD GAS HCO3 30.6 meq/L (22-26); ARTERIAL BLOOD GAS PCO2 58.4 mmHg (35-45); ARTERIAL BLOOD GAS PO2 64.5 mmHg (80-100); ARTERIAL BLOOD GAS pH 7.34 (7.35-7.45)
[2021-04-21 05:42] LABS: BAND 6 % (0-10); LYMPHOCYTE 44 % (20.0-51.0); METAMYELOCYTE 2 % (0-0); NEUTROPHILS 43 % (42.0-75.2); PLATELET ESTIMATE NORMAL (NORMAL)
--- NOTE | 2021-04-21 07:32 | NUR ---
RECEIVED REPORT FROM AWAIS COTTON. PATIENT IS RESTING COMFORTABLY ON VENTILATOR. VSS. SCRUGGS CATHTER IN PLACE, PATENT AND DRAINING TO GRAVITY. FMS STILL IN PLACE. WILL ASSESS TODAY FOR PATENCY. TUBEFEEDING GOING. TLC IN PLACE. CURRENTLY ON SEDATION VACATION.
--- NOTE | 2021-04-21 17:03 | NUR ---
NO SEDATION VACATION TODAY. PATIENT HAS BEEN ON MINIMAL SEDATION THROUGHOUT THE DAY FOR PATIENT'S COMFORT LEVEL. AGITATION THIS AFTERNOON AND UPPED SEDATION A BIT FOR COMFORT. WILL KEEP SEDATION IS.
[2021-04-22] VITALS (486 sets, daily range): BP systolic 138–178; BP diastolic 65–96; PULSE 70–84; TEMP 99.4–101.4; O2SAT 76–96
[2021-04-22 05:21] LABS: BASO % 0.1 % (0.0-2.0); EOS # 0.2 (0.0-0.7); EOS % 1.8 % (0-4.0); GRAN # 9.9 (1.4-6.5); GRAN % 73.5 % (42.2-75.2); HEMATOCRIT 45.3 % (42.0-52.0); HEMOGLOBIN 14.5 g/dl (13.5-18.0); LYMPH % 14.8 % (20.0-51.0); MEAN CELL VOLUME 89 fl (80.0-100.0); MEAN CORPUSCULAR HEMOGLOBIN 28 pg (27.0-31.0); MEAN CORPUSCULAR HGB CONC 32 g/dl (33.0-37.0); MEAN PLATELET VOLUME 11.6 fl (7.4-10.4); MONO # 1.1 (0.1-0.6); MONO % 8.4 % (1.7-9.3); PLATELET COUNT 271 K/mm3 (130-400); RED BLOOD COUNT 5.11 M/mm3 (4.20-5.60); REDCELL DISTRIBUTION WIDTH-CV 14.5 % (11.5-14.5)
[2021-04-22 05:22] LABS: C-REACTIVE PROTEIN 0.8 mg/dL (0.0-0.9); CREATININE, serum 1.31 (0.66-1.25); POTASSIUM 5.3 mmol/L (3.4-5.0)
[2021-04-22 06:25] LABS: ARTERIAL BLD GAS O2 SATURATION 89.3 % (92-100); ARTERIAL BLOOD GAS BASE EXCESS 1.7 (-2-2); ARTERIAL BLOOD GAS HCO3 26.6 meq/L (22-26); ARTERIAL BLOOD GAS PO2 57.8 mmHg (80-100); ARTERIAL BLOOD GAS pH 7.41 (7.35-7.45)
--- NOTE | 2021-04-22 10:44 | NUR ---
SW attended rounds with physician and team. Patient could have possible trach placement this week. SW will continue to follow.
--- NOTE | 2021-04-22 20:30 | NUR ---
Assessment complete and charted. Patient noted to be over breathing vent. Sedation increased. Patient easily follows commands and is able to communicate with staff needs (wanting sheet/legs covered). Reports comfortable. Denies needs.
[2021-04-23] VITALS (635 sets, daily range): BP systolic 108–172; BP diastolic 53–96; PULSE 73–87; TEMP 99.3–100.6; O2SAT 71–100
--- NOTE | 2021-04-23 01:00 | NUR ---
DUE TO PTS STABLE VS FI02 IS BEING DROPPED DOWN IN BY 5% LONG SATURATIONS ARE BEING MAINTAINED AT OR ABOVE 90%. DOING SO IN HOPES OF IMROVING VENT SETTINGS TO WEAN PATIENT OFF VENT IN THE NEAR FUTURE WITH APPROPIATE SETTINGS TO QUALIFY PT.
--- NOTE | 2021-04-23 04:00 | NUR ---
Patient residuals 285. Stopped feedings at this time. Will reassess in 2 hours. Rectal tube leaking. Exchanged at this time. Noted to have white tongue along with yellowish discharge from nikita- Deisy GLASGOW notified, no new orders at this time.
[2021-04-23 05:34] LABS: ARTERIAL BLD GAS O2 SATURATION 94.8 % (92-100); ARTERIAL BLD GAS TCO2 CT 25.5; ARTERIAL BLOOD GAS HCO3 24.2 meq/L (22-26); ARTERIAL BLOOD GAS PCO2 41.8 mmHg (35-45); ARTERIAL BLOOD GAS PO2 75.3 mmHg (80-100); ARTERIAL BLOOD GAS pH 7.38 (7.35-7.45)
--- NOTE | 2021-04-23 06:01 | NUR ---
PT DOES NOT QUALIFY FOR WEAN TRIAL PT ON DOCUMENTED SETTINGS
[2021-04-23 06:15] LABS: BASO % 0.2 % (0.0-2.0); EOS # 0.1 (0.0-0.7); EOS % 0.9 % (0-4.0); GRAN # 10.1 (1.4-6.5); GRAN % 77.4 % (42.2-75.2); HEMOGLOBIN 14.3 g/dl (13.5-18.0); LYMPH # 1.8 (1.2-3.4); LYMPH % 14.1 % (20.0-51.0); MEAN CELL VOLUME 90 fl (80.0-100.0); MEAN CORPUSCULAR HEMOGLOBIN 29 pg (27.0-31.0); MEAN CORPUSCULAR HGB CONC 33 g/dl (33.0-37.0); MEAN PLATELET VOLUME 11.6 fl (7.4-10.4); MONO # 0.9 (0.1-0.6); MONO % 6.5 % (1.7-9.3); PLATELET COUNT 198 K/mm3 (130-400); RED BLOOD COUNT 4.91 M/mm3 (4.20-5.60); REDCELL DISTRIBUTION WIDTH-CV 14.1 % (11.5-14.5)
--- NOTE | 2021-04-23 06:29 | NUR ---
Patient had increased OG residuals throughout night. Feedings held. Repositioned Q2H. FiO2 down to 55%. Tolerating well. Rectal tube replaced during night for leakage. Continues on fentanyl, versed and precedex for sedation.
--- NOTE | 2021-04-23 07:21 | NUR ---
Report given to AWAIS Barajas
[2021-04-23 07:57] LABS: CREATININE, serum 1.21 (0.66-1.25); POTASSIUM 4.8 mmol/L (3.4-5.0)
--- NOTE | 2021-04-23 10:30 | NUR ---
Inter-dry dressing placed in patient intergluteal cleft due to open area. Patient repositioned at this time. Risidual checked and noted to be at 20cc, tube feeds restarted.
--- NOTE | 2021-04-23 12:49 | NUR ---
Patient remains on a ventilator. hospice social worker contacted patient's mother, Kristin Awad #[phone]. Kristin states patient lost his job in [place] about 2 years ago and he and his parents recently moved to [place] to be near and support patient's sister that has cancer. Patient had held a job for a short period of time and due to back issues, had to stop working. Kristin states that patient is not and does not have any children. Worker provided information on [facility] and assistance with help applying for medicaid and disability. Kristin verbalizes understanding of the above information and confirms patient has never applied and is an citizen of [place] citizen without health insurance. Patient does not have a primary care provider. Worker provided emotional support as mother describes her son suffering from depression and increased weight gain, despite family's effort to support him. Patient resides in the same home with his parents, sister and her spouse. Family all became ill with COVID 19 and mother was just recently discharged from the hospital. Worker spoke with Rich Shane and Deisy, financial counselors, and advised of the above information. Worker obtained copies of all need paperwork to begin medicaid and disability application and will have patient sign them when he is alert and able to complete. Worker met with patient's nurse and advised of paperwork needing signatures.
--- NOTE | 2021-04-23 19:12 | NUR ---
PT report given to AWAIS Murray.
--- NOTE | 2021-04-23 20:30 | NUR ---
Assessment complete and charted. Patient repositioned. Awake but not following commands currently. Continues on sedation.
[2021-04-24] VITALS (846 sets, daily range): BP systolic 108–130; BP diastolic 67–93; PULSE 79–87; TEMP 101.5–103.1; O2SAT 99–100
--- NOTE | 2021-04-24 05:28 | NUR ---
Sedation vacation not complete. Patient febrile 103.1.
[2021-04-24 05:41] LABS: BASO % 0.2 % (0.0-2.0); EOS # 0.1 (0.0-0.7); EOS % 0.9 % (0-4.0); GRAN # 8.5 (1.4-6.5); GRAN % 67.7 % (42.2-75.2); HEMATOCRIT 45.7 % (42.0-52.0); HEMOGLOBIN 14.6 g/dl (13.5-18.0); LYMPH # 2.7 (1.2-3.4); LYMPH % 21.8 % (20.0-51.0); MEAN CELL VOLUME 89 fl (80.0-100.0); MEAN CORPUSCULAR HEMOGLOBIN 29 pg (27.0-31.0); MEAN CORPUSCULAR HGB CONC 32 g/dl (33.0-37.0); MEAN PLATELET VOLUME 12.6 fl (7.4-10.4); MONO # 1.1 (0.1-0.6); MONO % 8.8 % (1.7-9.3); PLATELET COUNT 187 K/mm3 (130-400); RED BLOOD COUNT 5.13 M/mm3 (4.20-5.60); REDCELL DISTRIBUTION WIDTH-CV 14.2 % (11.5-14.5)
[2021-04-24 05:59] LABS: ARTERIAL BLD GAS O2 SATURATION 88.1 % (92-100); ARTERIAL BLOOD GAS BASE EXCESS 1.1 (-2-2); ARTERIAL BLOOD GAS PCO2 42.4 mmHg (35-45); ARTERIAL BLOOD GAS PO2 55.8 mmHg (80-100)
--- NOTE | 2021-04-24 06:09 | NUR ---
Patient febrile during night. Given PRN tylenol and received a x1 order for motrin during night/this AM. Patient gown removed and sheet only across lap. Fan on with ice packs under arms/trunk. Monitoring temp. Repositioned Q2H. Able to wake up and answer yes/no questions.
[2021-04-24 08:04] LABS: CALCIUM 8.9 mg/dL (8.4-10.2); CREATININE, serum 1.42 (0.66-1.25); MAGNESIUM 2.3 mg/dL (1.6-2.3); PHOSPHOROUS 4.1 mg/dL (2.5-4.5); POTASSIUM 4.8 mmol/L (3.4-5.0)
--- NOTE | 2021-04-24 13:29 | NUR ---
Vancomycin Initial Dosing Pharmacy Note Ordering provider: Tong Isaacs MD Indication/duration: Fevers, 10 days LABS: SCr 1.42, CrCl~148, GFR 62 Recommendation: Vancomycin 2 gm IV q12h. Pharmacy will continue to closely monitor and check a Vancomycin trough on 04/26/21. Maintenance dose: 2 grams every 12 hours Trough goal: 15-20 ug/mL
--- NOTE | 2021-04-24 17:00 | NUR ---
DR. PATEL WANTED PICC LINE PLACED, CHARMAINE UNABLE TO PLACE. DR. MCLAUGHLIN CALLED FOR NEW TRIPLE LUMEN IJ PLACED ON RIGHT SIDE. HE WILL BE HERE SOON. AFTER NEW LINE IS PLACED, OLD LINE ON LEFT IJ WILL BE REMOVED D/T INCREASED INSTANCES OF FEVER AND CONCERN FOR INFECTION.
--- NOTE | 2021-04-24 19:36 | NUR ---
REPORT GIVEN TO AWAIS GUERRA. VENT SETTING AND LINES/TUBES REVIEWED. CARE TRANSFERRED AT THIS TIME.
[2021-04-25] VITALS (888 sets, daily range): BP systolic 106–141; BP diastolic 69–95; PULSE 78–85; TEMP 101.7–102.6; O2SAT 79–100
[2021-04-25 05:23] LABS: ARTERIAL BLD GAS O2 SATURATION 94.7 % (92-100); ARTERIAL BLD GAS TCO2 CT 27.2; ARTERIAL BLOOD GAS BASE EXCESS 0.8 (-2-2); ARTERIAL BLOOD GAS HCO3 25.9 meq/L (22-26); ARTERIAL BLOOD GAS PCO2 42.9 mmHg (35-45); ARTERIAL BLOOD GAS PO2 74.3 mmHg (80-100)
[2021-04-25 05:45] LABS: BASO % 0.2 % (0.0-2.0); EOS % 0.3 % (0-4.0); GRAN # 6.8 (1.4-6.5); GRAN % 64.7 % (42.2-75.2); HEMATOCRIT 43.2 % (42.0-52.0); LYMPH # 2.5 (1.2-3.4); LYMPH % 23.6 % (20.0-51.0); MEAN CELL VOLUME 89 fl (80.0-100.0); MEAN CORPUSCULAR HEMOGLOBIN 29 pg (27.0-31.0); MEAN CORPUSCULAR HGB CONC 32 g/dl (33.0-37.0); MEAN PLATELET VOLUME 12.5 fl (7.4-10.4); MONO # 1.1 (0.1-0.6); MONO % 10.5 % (1.7-9.3); PLATELET COUNT 158 K/mm3 (130-400); RED BLOOD COUNT 4.86 M/mm3 (4.20-5.60); REDCELL DISTRIBUTION WIDTH-CV 13.7 % (11.5-14.5)
[2021-04-25 05:58] LABS: ALANINE AMINOTRANSFERASE 67 U/L (4-49); ALBUMIN 3.1 gm/dL (3.5-5.0); ALKALINE PHOSPHATASE 33 U/L (50-136); ANION GAP 3 mmol/L (7-16); AST,SGOT 38 U/L (15-37); BILIRUBIN,TOTAL 0.6 mg/dL (0.0-1.0); BLOOD UREA NITROGEN 51 mg/dL (9-20); CALCIUM 8.5 mg/dL (8.4-10.2); CARBON DIOXIDE 29 mmol/L (22-30); CHLORIDE 105 mmol/L (98-107); CREATININE, serum 1.28 (0.66-1.25); GLUCOSE 192 mg/dL (74-106); POTASSIUM 4.7 mmol/L (3.4-5.0); SODIUM 137 mmol/L (137-145)
[2021-04-25 05:59] LABS: C-REACTIVE PROTEIN < 0.5 mg/dL (0.0-0.9)
--- NOTE | 2021-04-25 06:21 | NUR ---
TURNED PATIENT AT 0400 BEFORE SEDATION VACATION AND PT HAD COUGHING FIT THAT CAUSED HIM TO TAKE LARGE VOLUMES AND RESPIRATIONS INCREASED TO 40S. DID NOT TURN OFF SEDATION. SEDATION SHORTLY PAUSED IN INTERVALS FOR TUBING CHANGES AND PT TOLERATED WELL. FOLLOWED COMMANDS BUT GRIMACED IN PAIN.
--- NOTE | 2021-04-25 08:21 | NUR ---
PAUSED TUBE FEEDS FOR RESIDUALS >250 FROM 0400- NEXT SHIFT.
--- NOTE | 2021-04-25 12:52 | NUR ---
REPLACED GI TUBE NAVA AT REQUEST OF RN.
--- NOTE | 2021-04-25 13:37 | NUR ---
SUICIDE ASSESSMENT RISK NOT COMPLETED PATIENT IS INTUBATED AND SEDATED.
--- NOTE | 2021-04-25 19:15 | NUR ---
Received report from AWAIS Tello.
--- NOTE | 2021-04-25 20:00 | NUR ---
Patient resting quietly in bed. Tolerating ventilator well; FiO2 at 50%, with oxygen saturation 90-91%. RT notified; FiO2 increased to 55%, with sats improving up to 96%. Continues to receive versed, fentanyl, and precedex for sedation. Opens eyes spontaneously and follows verbal commands. All vitals within normal limits.
[2021-04-26] VITALS (458 sets, daily range): BP systolic 118–137; BP diastolic 71–90; PULSE 73–84; TEMP 99.2–101.6; O2SAT 90–100
[2021-04-26 03:14] LABS: ARTERIAL BLD GAS O2 SATURATION 97.5 % (92-100); ARTERIAL BLD GAS TCO2 CT 26.4; ARTERIAL BLOOD GAS BASE EXCESS 0.8 (-2-2); ARTERIAL BLOOD GAS HCO3 25.2 meq/L (22-26); ARTERIAL BLOOD GAS PCO2 39.6 mmHg (35-45); ARTERIAL BLOOD GAS PO2 93.7 mmHg (80-100); ARTERIAL BLOOD GAS pH 7.42 (7.35-7.45)
[2021-04-26 04:48] LABS: BASO % 0.2 % (0.0-2.0); GRAN # 7.1 (1.4-6.5); GRAN % 72.6 % (42.2-75.2); HEMATOCRIT 41.7 % (42.0-52.0); HEMOGLOBIN 13.4 g/dl (13.5-18.0); LYMPH # 1.4 (1.2-3.4); LYMPH % 14.6 % (20.0-51.0); MEAN CELL VOLUME 88 fl (80.0-100.0); MEAN CORPUSCULAR HEMOGLOBIN 28 pg (27.0-31.0); MEAN CORPUSCULAR HGB CONC 32 g/dl (33.0-37.0); MEAN PLATELET VOLUME 13.5 fl (7.4-10.4); MONO # 1.2 (0.1-0.6); MONO % 12.1 % (1.7-9.3); PLATELET COUNT 127 K/mm3 (130-400); RED BLOOD COUNT 4.72 M/mm3 (4.20-5.60); REDCELL DISTRIBUTION WIDTH-CV 13.3 % (11.5-14.5)
[2021-04-26 06:51] LABS: CALCIUM 8.5 mg/dL (8.4-10.2); CREATININE, serum 1.12 (0.66-1.25); POTASSIUM 4.8 mmol/L (3.4-5.0)
--- NOTE | 2021-04-26 07:23 | NUR ---
BEDSIDE SHIFT REPORT RECEIVED FROM AWAIS PICKARD. PATIENT RESTING COMFORTABLY IN BED WITH EYES CLOSED. STILL SEDATED AND INTUBATED. TLC HAS BEEN MOVED TO RIGHT INTERNAL JUGULAR VEIN. SEE GTT TITRATION FLOWSHEET. VSS AT THIS TIME. SCRUGGS CATHETER HAS BEEN EXCHANGED AND FMS IS STILL IN PLACE. BOTH ARE PATENT AND DRAINING TO GRAVITY.
--- NOTE | 2021-04-26 09:28 | NUR ---
DR. PATEL AT BEDSIDE. SPOKE TO ABOUT ATTEMPTING TO DO WEANING TRIALS WITH CONCERN TO PREVENT NEEDING TRACH AND PEG. ADVISED TO WEAN OFF VERSED TO SEE HOW PATIENT FAIRS.
--- NOTE | 2021-04-26 17:13 | NUR ---
HAVE BEEN WEANING OFF VERSED FOR TODAY AND KEEPING OTHER SEDATION IS TO SEE HOW PATIENT FAIRS.
--- NOTE | 2021-04-26 18:11 | NUR ---
RT CALLED TO ICU FOR VENT ALARM. VENT NOT VENTILATING PT. RT QUICKLY TRIED TO TROUBLESHOOT WITHOUT SUCCESS SO RN BAGGED PT WHILE RT CHANGED OUT THE VENT. PT PLACED BACK ON NEW VENT AT PREVIOUS SETTINGS W/O INCIDENT. PT NOW VENTILATING WELL WITH SPO2 IN MID 90'S.
--- NOTE | 2021-04-26 19:10 | NUR ---
Received report from AWAIS Kiser.
--- NOTE | 2021-04-26 20:00 | NUR ---
Patient resting quietly in bed. Tolerating ventilator well; axillary temperature of 101.6, all other vitals within normal limits. Will administer PRN Tylenol for temperature. Patient is alert and following verbal commands. He answers yes/no questions with nods/shakes of head. Bed in lowest position, all alarms on. No further needs noted.
--- NOTE | 2021-04-26 22:32 | NUR ---
Patient's ventilator frequently alarming, "low mandatory tidal volume." Alie POPE, notified, who contacted THIERNO. Patient's respiratory rate decreased to 26; tolerating well.
[2021-04-27] VITALS (592 sets, daily range): BP systolic 117–148; BP diastolic 55–84; PULSE 61–85; TEMP 98.1–101.1; O2SAT 84–100
--- NOTE | 2021-04-27 00:33 | NUR ---
Patient's last four BGs have been greater than 250. Latest BG trending down, with a result of 272 at 0030 from 303 at 1999. Hospitalist, Deisy, notified. To administer sliding scale insulin as currently ordered. If 0400 BG is greater than 250, may consider initiating insulin drip.
[2021-04-27 02:51] LABS: ARTERIAL BLOOD GAS BASE EXCESS -1.3 (-2-2); ARTERIAL BLOOD GAS HCO3 23.8 meq/L (22-26); ARTERIAL BLOOD GAS PCO2 41.2 mmHg (35-45); ARTERIAL BLOOD GAS pH 7.38 (7.35-7.45)
[2021-04-27 04:39] LABS: BASO % 0.1 % (0.0-2.0); EOS % 0.1 % (0-4.0); GRAN # 7.4 (1.4-6.5); GRAN % 76.3 % (42.2-75.2); HEMATOCRIT 39.8 % (42.0-52.0); HEMOGLOBIN 13.1 g/dl (13.5-18.0); LYMPH # 1.3 (1.2-3.4); LYMPH % 13.3 % (20.0-51.0); MEAN CELL VOLUME 87 fl (80.0-100.0); MEAN CORPUSCULAR HEMOGLOBIN 29 pg (27.0-31.0); MEAN CORPUSCULAR HGB CONC 33 g/dl (33.0-37.0); MEAN PLATELET VOLUME 13.7 fl (7.4-10.4); MONO # 0.9 (0.1-0.6); MONO % 9.7 % (1.7-9.3); PLATELET COUNT 117 K/mm3 (130-400); RED BLOOD COUNT 4.56 M/mm3 (4.20-5.60); REDCELL DISTRIBUTION WIDTH-CV 13.2 % (11.5-14.5)
[2021-04-27 04:47] LABS: CALCIUM 8.7 mg/dL (8.4-10.2); CREATININE, serum 0.95 (0.66-1.25); POTASSIUM 4.8 mmol/L (3.4-5.0)
[2021-04-27 06:10] LABS: ARTERIAL BLD GAS O2 SATURATION 96.7 % (92-100); ARTERIAL BLD GAS TCO2 CT 26.3; ARTERIAL BLOOD GAS BASE EXCESS -0.6 (-2-2); ARTERIAL BLOOD GAS PCO2 44.4 mmHg (35-45); ARTERIAL BLOOD GAS PO2 87.2 mmHg (80-100); ARTERIAL BLOOD GAS pH 7.37 (7.35-7.45)
--- NOTE | 2021-04-27 07:10 | NUR ---
BEDSIDE SHIFT REPORT RECEIVED FROM AWAIS PICKARD. PATIENT HAS BEEN SUCCESSFUL WITH WEANING TRIAL FOR 2 HOURS AND HAS BEEN WEANING OFF SEDATION GRADUALLY. PATIENT IS RESTING COMFORTABLY IN BED WITH EYES OPEN, REPORTEDLY FOLLOWING COMMANDS AND REMAINING CALM. VSS AT THIS TIME. CALL BUTTON WITHIN REACH AND TELEVISION ON FOR STIMULATION. TLC IN RIJ IN PLACE. SCRUGGS CATHETER IN PLACE, PATENT AND DRAINING TO GRAVITY. FMS IS PLACE. WILL BE ASSESING PATENCY AND IRRIGATING LATER.
--- NOTE | 2021-04-27 07:37 | NUR ---
Vancomycin Follow-up Pharmacy Note Current regimen: VANCOMYCIN 2G Q12H Vancomycin trough: 9.4 Adjustments: increase to vancomycin 1.75G q8h. please note - trough on 04/26 drawn inappropriately and was actually a peak. lab to delete.
--- NOTE | 2021-04-27 09:38 | NUR ---
DR. PATEL AT BEDSIDE. CONCERNS FOR INTAKE WITH FLUSHES. WANTING TO GO DOWN ON TUBEFEEDING. WILL TALK TO DIETARY. HAVE BEEN SUCCESSFUL IN WEANING SEDATION.
--- NOTE | 2021-04-27 12:21 | NUR ---
SPOKE TO DIETARY. AGREEABLE TO DECREASING TUBEFEEDS AND FLUSHES. DIETARY WILL PLACE ORDERS. THIS NURSE WILL ADJUST PUMP.
--- NOTE | 2021-04-27 17:08 | NUR ---
PATIENT HAS BEEN ON MINIMAL SEDATION ALL DAY.
--- NOTE | 2021-04-27 19:00 | NUR ---
Received report from AWAIS Kiser.
--- NOTE | 2021-04-27 20:30 | NUR ---
Patient resting quietly in bed with eyes open. Continues on ventilator; tolerating well. He is alert, calm, and following verbal commands. Answering yes/no questions. All vitals within normal limits. Patient repositioned with assistance of RT.
[2021-04-28] VITALS (659 sets, daily range): BP systolic 111–136; BP diastolic 71–91; PULSE 63–88; TEMP 96.2–98.4; O2SAT 82–100
[2021-04-28 05:03] LABS: BASO % 0.1 % (0.0-2.0); GRAN # 8.1 (1.4-6.5); GRAN % 81.2 % (42.2-75.2); HEMATOCRIT 38.7 % (42.0-52.0); HEMOGLOBIN 12.7 g/dl (13.5-18.0); LYMPH % 10.4 % (20.0-51.0); MEAN CELL VOLUME 88 fl (80.0-100.0); MEAN CORPUSCULAR HEMOGLOBIN 29 pg (27.0-31.0); MEAN CORPUSCULAR HGB CONC 33 g/dl (33.0-37.0); MEAN PLATELET VOLUME 13.8 fl (7.4-10.4); MONO # 0.8 (0.1-0.6); MONO % 7.8 % (1.7-9.3); PLATELET COUNT 109 K/mm3 (130-400); RED BLOOD COUNT 4.41 M/mm3 (4.20-5.60); REDCELL DISTRIBUTION WIDTH-CV 13.3 % (11.5-14.5)
[2021-04-28 05:13] LABS: ALBUMIN 3.2 gm/dL (3.5-5.0); BILIRUBIN,TOTAL 0.6 mg/dL (0.0-1.0); CALCIUM 8.5 mg/dL (8.4-10.2); CREATININE, serum 0.94 (0.66-1.25); PHOSPHOROUS 4.2 mg/dL (2.5-4.5); POTASSIUM 4.5 mmol/L (3.4-5.0); TOTAL PROTEIN 5.6 gm/dL (6.4-8.2)
[2021-04-28 05:21] LABS: PRE ALBUMIN 44.8 mg/dL (17.6-36.0)
[2021-04-28 05:57] LABS: ARTERIAL BLD GAS O2 SATURATION 96.5 % (92-100); ARTERIAL BLD GAS TCO2 CT 23.5; ARTERIAL BLOOD GAS BASE EXCESS -2.7 (-2-2); ARTERIAL BLOOD GAS HCO3 22.3 meq/L (22-26); ARTERIAL BLOOD GAS PCO2 39.4 mmHg (35-45); ARTERIAL BLOOD GAS PO2 87.7 mmHg (80-100); ARTERIAL BLOOD GAS pH 7.37 (7.35-7.45)
--- NOTE | 2021-04-28 07:17 | NUR ---
BEDSIDE SHIFT RECEIVED FROM AWAIS PICKARD. PATIENT HAS BEEN ON WEANING TRIAL FOR 5 HOURS UP TO THIS POINT. VSS. VERSED HAS BEEN DISCONTINUED. SEE GTT TITRATION FLOWSHEET. TELEVISION ON FOR STIMULATION. CALL ORELALNA IN REACH. PATIENT IS FOLLOWING COMMANDS. SCRUGGS CATHTER IN PLACE, PATENT AND DRAINING TO GRAVITY. TLC IN RIGHT IJ IN PLACE. FECAL MANAGEMENT SYSTEM IN PLACE. WILL ASSESS FURTHER. DR. MÁRQUEZ AT BEDSIDE AND WANTING TO EXTUBATE. ANESTHESIA AND RESPIRATORY THERAPY AWARE.
--- NOTE | 2021-04-28 11:15 | NUR ---
Patient signed forms for medicaid application. Worker sent forms onto financial counselorDeisy for completion of medicaid/disability application. Worker left message for patient's mother, Coral, to call as she is designated fuels sales representative to help R1 with application.
--- NOTE | 2021-04-28 11:31 | NUR ---
fairing worker spoke with patient's mother and Deisy, financial counselor and confirmed that they will begin Medicaid/disability application today.
--- NOTE | 2021-04-28 17:00 | NUR ---
PATIENT IN MINIMAL SEDATION FOR THE DAY, FOLLOWING VERBAL COMMANDS AND ABLE TO COMMUNICATE WITH NURSE. NO NEED FOR SEDATION VACATION AT THIS TIME.
[2021-04-29] VITALS (492 sets, daily range): BP systolic 113–146; BP diastolic 68–95; PULSE 69–97; TEMP 98–99.4; O2SAT 82–100
[2021-04-29 06:09] LABS: ARTERIAL BLD GAS O2 SATURATION 97.3 % (92-100); ARTERIAL BLD GAS TCO2 CT 24.3; ARTERIAL BLOOD GAS BASE EXCESS -2.4 (-2-2); ARTERIAL BLOOD GAS PO2 97.7 mmHg (80-100); ARTERIAL BLOOD GAS pH 7.36 (7.35-7.45)
[2021-04-29 06:42] LABS: BASO % 0.1 % (0.0-2.0); EOS % 0.1 % (0-4.0); GRAN % 80.9 % (42.2-75.2); HEMATOCRIT 39.4 % (42.0-52.0); HEMOGLOBIN 12.7 g/dl (13.5-18.0); LYMPH # 1.2 (1.2-3.4); LYMPH % 9.7 % (20.0-51.0); MEAN CELL VOLUME 89 fl (80.0-100.0); MEAN CORPUSCULAR HEMOGLOBIN 29 pg (27.0-31.0); MEAN CORPUSCULAR HGB CONC 32 g/dl (33.0-37.0); MEAN PLATELET VOLUME 13.5 fl (7.4-10.4); MONO # 1.1 (0.1-0.6); MONO % 8.7 % (1.7-9.3); PLATELET COUNT 114 K/mm3 (130-400); RED BLOOD COUNT 4.45 M/mm3 (4.20-5.60); REDCELL DISTRIBUTION WIDTH-CV 13.5 % (11.5-14.5)
[2021-04-29 07:37] LABS: CALCIUM 8.9 mg/dL (8.4-10.2); CREATININE, serum 0.93 (0.66-1.25); POTASSIUM 4.3 mmol/L (3.4-5.0)
--- NOTE | 2021-04-29 07:39 | NUR ---
Pt is awake, alert and oriented to situation - plan is to have anesthesia standing by while pt is extubated to oxymask
--- NOTE | 2021-04-29 10:00 | NUR ---
MD Alek at on unit - pt has tachypnic with rapid shallow respirations. Per MD Alek - end sedation vacation/weaning trial and resume sedation at previous rate before trial. Fentanyl: 225mcg/hr Precedex: 0.7mcg/kg/hr
--- NOTE | 2021-04-29 13:00 | NUR ---
Pt able to assist in turning to side - rectal tube in place with minimal leakage
--- NOTE | 2021-04-29 17:32 | NUR ---
Sedation Vacation not completed, weaning trial again in the morning to be completed
[2021-04-30] VITALS (477 sets, daily range): BP systolic 111–136; BP diastolic 76–95; PULSE 62–86; TEMP 98.9–99.5; O2SAT 83–100
[2021-04-30 05:30] LABS: ARTERIAL BLD GAS O2 SATURATION 97.5 % (92-100); ARTERIAL BLD GAS TCO2 CT 27.4; ARTERIAL BLOOD GAS BASE EXCESS 0.9 (-2-2); ARTERIAL BLOOD GAS HCO3 26.1 meq/L (22-26); ARTERIAL BLOOD GAS PCO2 43.9 mmHg (35-45); ARTERIAL BLOOD GAS pH 7.39 (7.35-7.45)
--- NOTE | 2021-04-30 09:07 | NUR ---
Pt is able to follow commands with weak hand grasps and weak head lifting off bed. Pt to be extubated with anesthesia standing by (paged at [phone]) per MD Alek.
--- NOTE | 2021-04-30 09:11 | NUR ---
Rich Gracia,CHAITANYA will be the anesthesia provider standing by - he is aware we are to extubate soon
--- NOTE | 2021-04-30 09:56 | NUR ---
0921: Pt extubated to 5L oxymask. SpO2 84-87%. MD Alek on unit Oxymask increased to 10L. SpO2 85-90% 0934: BiPAP applied. 09/07 40% with SpO2 98% Pt tolerating BiPAP at the moment. BiPAP education and importance of not removing BiPAP provided - pt verbally states understanding. Call light in reach, pt watching television.
[2021-04-30 13:00] LABS: ARTERIAL BLD GAS O2 SATURATION 92.9 % (92-100); ARTERIAL BLD GAS TCO2 CT 26.3; ARTERIAL BLOOD GAS BASE EXCESS 0.1 (-2-2); ARTERIAL BLOOD GAS PCO2 41.9 mmHg (35-45); ARTERIAL BLOOD GAS PO2 67.7 mmHg (80-100); ARTERIAL BLOOD GAS pH 7.39 (7.35-7.45)
--- NOTE | 2021-04-30 14:39 | NUR ---
Patient has been extubated and nurse will attempt to see if patient can now advise of code into his cell phone. Mother is attempting to gain access to patient's phone to retrieve bank account information to finish medicaid/disability application. Worker spoke with patient's mother Kristin and confirmed they continue to attempt access to phone.
--- NOTE | 2021-04-30 17:24 | NUR ---
Pt has tolerated being on BiPAP well - pt has had no attempts to self remove mask. Q4hr/PRN oral care being completed for "dry mouth and throat". Pt denies hunger/thirst or wish to try PO intake at this time.
[2021-05-01] VITALS (663 sets, daily range): BP systolic 118–151; BP diastolic 56–105; PULSE 58–121; TEMP 98–99.3; O2SAT 51–100
[2021-05-01 04:27] LABS: BASO % 0.1 % (0.0-2.0); EOS % 0.2 % (0-4.0); GRAN # 9.2 (1.4-6.5); GRAN % 81.7 % (42.2-75.2); HEMOGLOBIN 11.4 g/dl (13.5-18.0); LYMPH % 8.8 % (20.0-51.0); MEAN CELL VOLUME 88 fl (80.0-100.0); MEAN CORPUSCULAR HEMOGLOBIN 29 pg (27.0-31.0); MEAN CORPUSCULAR HGB CONC 33 g/dl (33.0-37.0); MEAN PLATELET VOLUME 12.7 fl (7.4-10.4); MONO % 8.8 % (1.7-9.3); PLATELET COUNT 118 K/mm3 (130-400); RED BLOOD COUNT 3.99 M/mm3 (4.20-5.60); REDCELL DISTRIBUTION WIDTH-CV 13.5 % (11.5-14.5)
[2021-05-01 04:30] LABS: HEMATOCRIT 35.1 % (42.0-52.0)
[2021-05-01 04:36] LABS: ALBUMIN 3.1 gm/dL (3.5-5.0); BILIRUBIN,TOTAL 0.9 mg/dL (0.0-1.0); CALCIUM 8.5 mg/dL (8.4-10.2); CREATININE, serum 0.68 (0.66-1.25); POTASSIUM 4.4 mmol/L (3.4-5.0); TOTAL PROTEIN 5.5 gm/dL (6.4-8.2)
--- NOTE | 2021-05-01 08:45 | NUR ---
Patient alert and oriented. Currenlty wearing BIPAP. Transitioned to oxymask initially at 10L and was at 100%. Reduced to 6L and remains 99%. Attempted to give a sip of water but patient coughed up water. Attempted individual ice chips and tolerated well. RT at bedside to give breathing treatment. Call light left within reach. Will continue to monitor.
--- NOTE | 2021-05-01 20:37 | NUR ---
Assessment complete and charted. PAtient alert and orientated. Spoke speech/whisper. Denies needs at this time. Call light in reach.
[2021-05-01 23:29] LABS: ALBUMIN 3.4 gm/dL (3.5-5.0); BILIRUBIN,TOTAL 1.2 mg/dL (0.0-1.0); CALCIUM 8.8 mg/dL (8.4-10.2); CREATININE, serum 0.64 (0.66-1.25); MAGNESIUM 1.9 mg/dL (1.6-2.3); POTASSIUM 4.2 mmol/L (3.4-5.0); TOTAL PROTEIN 5.8 gm/dL (6.4-8.2)
[2021-05-02] VITALS (727 sets, daily range): BP systolic 128–151; BP diastolic 47–90; PULSE 107–130; TEMP 98.1–99.1; O2SAT 83–99
[2021-05-02 02:44] LABS: ARTERIAL BLD GAS O2 SATURATION 93.6 % (92-100); ARTERIAL BLD GAS TCO2 CT 24.9; ARTERIAL BLOOD GAS BASE EXCESS -0.1 (-2-2); ARTERIAL BLOOD GAS HCO3 23.8 meq/L (22-26); ARTERIAL BLOOD GAS PCO2 36.5 mmHg (35-45); ARTERIAL BLOOD GAS PO2 70.3 mmHg (80-100); ARTERIAL BLOOD GAS pH 7.43 (7.35-7.45)
[2021-05-02 05:17] LABS: BASO # 0.1 (0.0-0.2); BASO % 0.2 % (0.0-2.0); EOS % 0.1 % (0-4.0); GRAN # 22.2 (1.4-6.5); GRAN % 80.3 % (42.2-75.2); HEMATOCRIT 37.6 % (42.0-52.0); HEMOGLOBIN 12.6 g/dl (13.5-18.0); LYMPH % 7.4 % (20.0-51.0); MEAN CELL VOLUME 88 fl (80.0-100.0); MEAN CORPUSCULAR HEMOGLOBIN 30 pg (27.0-31.0); MEAN CORPUSCULAR HGB CONC 34 g/dl (33.0-37.0); MEAN PLATELET VOLUME 12.1 fl (7.4-10.4); MONO % 10.9 % (1.7-9.3); RED BLOOD COUNT 4.27 M/mm3 (4.20-5.60); REDCELL DISTRIBUTION WIDTH-CV 14.3 % (11.5-14.5)
[2021-05-02 05:26] LABS: CALCIUM 8.7 mg/dL (8.4-10.2); CREATININE, serum 0.84 (0.66-1.25); POTASSIUM 4.1 mmol/L (3.4-5.0)
[2021-05-02 05:40] LABS: PLATELET COUNT 251 K/mm3 (130-400)
[2021-05-02 06:47] LABS: HEMATOCRIT 38.3 % (42.0-52.0); HEMOGLOBIN 12.6 g/dl (13.5-18.0); MEAN CELL VOLUME 89 fl (80.0-100.0); MEAN CORPUSCULAR HEMOGLOBIN 29 pg (27.0-31.0); MEAN CORPUSCULAR HGB CONC 33 g/dl (33.0-37.0); MEAN PLATELET VOLUME 12.2 fl (7.4-10.4); PLATELET COUNT 264 K/mm3 (130-400); RED BLOOD COUNT 4.33 M/mm3 (4.20-5.60); REDCELL DISTRIBUTION WIDTH-CV 14.1 % (11.5-14.5)
--- NOTE | 2021-05-02 07:00 | NUR ---
Patient remained tachy throughout night. 120-140. Physicians at [facility] notified along with Brittany BURLESON. Documentation in physician notification. Asymptomatic. BP remained stable. WBC count increased this AM. Dr. Rocha with [facility] aware. Patient had bloody stools during night. Leaking around rectal tube. Stool occult positive. Brittany BURLESON aware and GI consult added. Otherwise uneventful night. On 13 liters oxymask this AM at 90% saturations. Call light in reach.
--- NOTE | 2021-05-02 07:27 | NUR ---
Report given to AWAIS Martin
[2021-05-02 07:52] LABS: BAND 3 % (0-10); LYMPHOCYTE 3 % (20.0-51.0); NEUTROPHILS 85 % (42.0-75.2); PLATELET ESTIMATE NORMAL (NORMAL)
--- NOTE | 2021-05-02 08:20 | NUR ---
Not maintaining 02 sats on 15L oxymask. Placed on BIPAP at 65% o2. 02 saturation low 90's. Upon assessment observed that bilat feet are reddened distally and warm and tender to the touch. WBC count also elevated this morning Dr. Gaston notified; Blood cutlures and urine sample to be sent to lab. Pt is already on broad spectrum antibiotics. Will continue to monitor.
[2021-05-02 10:16] LABS: COLLECTION METHOD CATHETER
[2021-05-02 10:24] LABS: MUCOUS Present /lpf; PH 5 (5-8); SQUAMOUS EPITHELIAL None Seen /hpf; URINE APPEARANCE Hazy; URINE BACTERIA Rare /hpf; URINE BILIRUBIN Negative (NEGATIVE); URINE BLOOD 3+ (NEGATIVE); URINE COLOR Yellow; URINE GLUCOSE Negative (NEGATIVE); URINE KETONE Negative (NEGATIVE); URINE LEUKOCYTE ESTERASE Negative (NEGATIVE); URINE NITRATE Negative (NEGATIVE); URINE PROTEIN(semi-quant) 1+ (NEGATIVE); URINE RBC >50 /hpf
[2021-05-02 11:07] LABS: ARTERIAL BLD GAS O2 SATURATION 98.7 % (92-100); ARTERIAL BLD GAS TCO2 CT 23.5; ARTERIAL BLOOD GAS BASE EXCESS -1.5 (-2-2); ARTERIAL BLOOD GAS HCO3 22.4 meq/L (22-26); ARTERIAL BLOOD GAS PCO2 35.3 mmHg (35-45); ARTERIAL BLOOD GAS pH 7.42 (7.35-7.45)
[2021-05-02 11:43] LABS: CLOSTRIDIUM DIFF A/B NEG; CLOSTRIDIUM DIFF A/B INTERP No C.diff present
--- NOTE | 2021-05-02 11:47 | NUR ---
Patient anxious and has pulled off BIPAP mulitple times. Discussed risks with patient regarding pulling off the mask without assistance. Attempted oxymask and patient 95% on 15L initially. Titrated down to 12L and will continue to montior.
--- NOTE | 2021-05-02 14:34 | NUR ---
Attempted to call family; no response and unable to leave a voicemail. Will attempt later.
--- NOTE | 2021-05-02 19:59 | NUR ---
Assessment complete and charted. Bed bath complete. Patient repositioned. Denies needs. call light in reach.
[2021-05-03] VITALS (344 sets, daily range): BP systolic 121–141; BP diastolic 61–73; PULSE 98–112; TEMP 97.9–99.2; O2SAT 89–95
[2021-05-03 05:47] LABS: CALCIUM 8.5 mg/dL (8.4-10.2); CREATININE, serum 0.65 (0.66-1.25); POTASSIUM 4.1 mmol/L (3.4-5.0)
[2021-05-03 05:59] LABS: HEMOGLOBIN 11.5 g/dl (13.5-18.0); MEAN CELL VOLUME 90 fl (80.0-100.0); MEAN CORPUSCULAR HEMOGLOBIN 29 pg (27.0-31.0); MEAN CORPUSCULAR HGB CONC 32 g/dl (33.0-37.0); MEAN PLATELET VOLUME 11.8 fl (7.4-10.4); PLATELET COUNT 199 K/mm3 (130-400); RED BLOOD COUNT 3.98 M/mm3 (4.20-5.60); REDCELL DISTRIBUTION WIDTH-CV 14.6 % (11.5-14.5)
[2021-05-03 06:04] LABS: HEMATOCRIT 35.7 % (42.0-52.0)
--- NOTE | 2021-05-03 06:25 | NUR ---
Patient had uneventful night. Resting in bed this AM. Call light in reach.
[2021-05-03 06:54] LABS: BAND 2 % (0-10); LYMPHOCYTE 16 % (20.0-51.0); METAMYELOCYTE 1 % (0-0); NEUTROPHILS 76 % (42.0-75.2); PLATELET ESTIMATE NORMAL (NORMAL)
--- NOTE | 2021-05-03 07:32 | NUR ---
Report given to AWAIS Hatfield
[2021-05-03 09:58] LABS: BILIRUBIN,TOTAL 1.2 mg/dL (0.0-1.0); CALCIUM 8.6 mg/dL (8.4-10.2); CREATININE, serum 0.71 (0.66-1.25); POTASSIUM 4.2 mmol/L (3.4-5.0); TOTAL PROTEIN 5.6 gm/dL (6.4-8.2)
[2021-05-03 10:05] LABS: PRE ALBUMIN 27.9 mg/dL (17.6-36.0)
--- NOTE | 2021-05-03 10:40 | NUR ---
Pt transported on [facility] Bariatric bed to [place] [id number] without complications. Recieved at bedside by AWAIS Izquierdo.
--- NOTE | 2021-05-03 10:55 | NUR ---
All belongings sent with pt
--- NOTE | 2021-05-03 11:01 | NUR ---
1015 CALL PLACED TO ICU TO RECEIVE REPORT. REPORT RECEIVED FROM ICU NURSE JUAN.
--- NOTE | 2021-05-03 17:53 | NUR ---
1109 PT RECEIVED IN A BARIATRIC BED. NO S/S OF DISTRESS. OXYGEN MASK ON AT 7L. NO S/S OF DISTRESS NOTICED. SCRUGGS IN PLACE AND DRAINING. RETAL TUBE IN PLACE, STOOL BROWN AND LOOSE. PT DENIES HAVING PAIN. PT COULD NOT FIND HIS CELL PHONE BUT ICU NURSE REMINDED HIM THAT HIS MOTHER HAS HIS PHONE. 1200 BLOOD GLUCOSE CHECKED AND INSULIN ADMINISTERED ORDERED. SCRUGGS CARE PROVIDED. V/S STABLE. PT REFUSED ADL CARE, STATES HE ALREADY HAD HIS A.M. 1600 TPN ADMINISTERED ORDERED. V/S STABLE. COMFORT MEASURES IN PLACE. WILL CONTINUE TO MONITOR.
--- NOTE | 2021-05-03 21:30 | NUR ---
SPOKE W/ PT ABOUT WEARING BIPAP TONIGHT BUT HE SAID HE WILL NOT WEAR IT AND NOTHING I SUGGESTED COULD MAKE HIM CHANGE HIS MIND. HE SAID HE'D RATHER HAVE TO WEAR THE OXYMASK FOR 3 MORE WEEKS THAN WEAR THE BIPAP FOR EVEN A FEW MINUTES. HE NOTED IT IS JUST TOO SCARY FOR HIM.
[2021-05-04 00:08] VITALS: BP 125/66; PULSE 93; TEMP 99.6
[2021-05-04 03:21] VITALS: BP 120/64; PULSE 77; TEMP 98.4
[2021-05-04 07:44] VITALS: BP 122/59; PULSE 102; TEMP 98.9
--- NOTE | 2021-05-04 07:46 | NUR ---
PT LAYING IN BED DENIES ANY PROBLEMS AT THIS TIME.
[2021-05-04 08:36] LABS: BASO % 0.1 % (0.0-2.0); EOS # 0.1 (0.0-0.7); EOS % 0.6 % (0-4.0); GRAN # 8.5 (1.4-6.5); LYMPH # 1.4 (1.2-3.4); LYMPH % 12.1 % (20.0-51.0); MEAN CELL VOLUME 92 fl (80.0-100.0); MEAN CORPUSCULAR HEMOGLOBIN 30 pg (27.0-31.0); MEAN CORPUSCULAR HGB CONC 32 g/dl (33.0-37.0); MEAN PLATELET VOLUME 11.6 fl (7.4-10.4); MONO # 1.3 (0.1-0.6); MONO % 11.2 % (1.7-9.3); PLATELET COUNT 188 K/mm3 (130-400); RED BLOOD COUNT 3.73 M/mm3 (4.20-5.60); REDCELL DISTRIBUTION WIDTH-CV 14.6 % (11.5-14.5)
[2021-05-04 08:48] LABS: HEMATOCRIT 34.2 % (42.0-52.0)
[2021-05-04 08:51] LABS: CALCIUM 8.3 mg/dL (8.4-10.2); CREATININE, serum 0.66 (0.66-1.25); PHOSPHOROUS 2.9 mg/dL (2.5-4.5); POTASSIUM 3.9 mmol/L (3.4-5.0)
[2021-05-04 12:32] VITALS: BP 132/82; PULSE 93; TEMP 98.2
[2021-05-04 15:43] VITALS: BP 133/77; PULSE 103; TEMP 98.9
[2021-05-04 20:40] VITALS: BP 134/81; PULSE 92; TEMP 99.2
--- NOTE | 2021-05-04 21:41 | NUR ---
ALERT AND OX4. WATCHING TV AND IN GOOD SPIRITS TONIGHT, LAUGHING AT SHOW HE IS WATCHING. DENIES ANY SOA, CHEST PAIN, MILD BODY DISCOMFORT. ON AIR MATTRESS THAT ROTATES SIDE TO SIDE. RECTAL TUBE IN, SCRUGGS CATH TO DD. RT IJ WITH TPN RUNNING. PM MEDS GIVEN, BS TX PER DEC. CALL LIGHT WI REACH. POC DISCUSSED. NEEDS MET.
[2021-05-05 00:37] VITALS: BP 133/72; PULSE 102; TEMP 98.2
[2021-05-05 04:15] VITALS: BP 146/85; PULSE 116; TEMP 98
--- NOTE | 2021-05-05 04:54 | NUR ---
RESTED THOUGH THE NIGHT WITHOUT INCIDENT. NEEDS MET.
[2021-05-05 06:54] LABS: BASO % 0.1 % (0.0-2.0); EOS # 0.1 (0.0-0.7); EOS % 0.4 % (0-4.0); GRAN % 75.8 % (42.2-75.2); HEMATOCRIT 37.6 % (42.0-52.0); HEMOGLOBIN 12.1 g/dl (13.5-18.0); LYMPH # 1.6 (1.2-3.4); LYMPH % 11.9 % (20.0-51.0); MEAN CELL VOLUME 91 fl (80.0-100.0); MEAN CORPUSCULAR HEMOGLOBIN 29 pg (27.0-31.0); MEAN CORPUSCULAR HGB CONC 32 g/dl (33.0-37.0); MEAN PLATELET VOLUME 11.2 fl (7.4-10.4); MONO # 1.4 (0.1-0.6); MONO % 10.8 % (1.7-9.3); PLATELET COUNT 224 K/mm3 (130-400); RED BLOOD COUNT 4.14 M/mm3 (4.20-5.60); REDCELL DISTRIBUTION WIDTH-CV 14.6 % (11.5-14.5)
[2021-05-05 06:55] LABS: CALCIUM 8.7 mg/dL (8.4-10.2); CREATININE, serum 0.67 (0.66-1.25); PHOSPHOROUS 3.2 mg/dL (2.5-4.5)
[2021-05-05 07:32] VITALS: BP 129/74; PULSE 116; TEMP 99.8
[2021-05-05 12:07] VITALS: BP 115/67; PULSE 107; TEMP 98.3
--- NOTE | 2021-05-05 15:37 | NUR ---
The patient has been a max assist x 2 with PT. The patient is self pay. MARIBELL consulted IPR Director, Maya.
[2021-05-05 16:14] VITALS: BP 149/81; PULSE 105; TEMP 97.5
[2021-05-05 19:36] VITALS: BP 143/97; PULSE 103; TEMP 98
--- NOTE | 2021-05-05 22:48 | NUR ---
ALERT AND OX4. SOFT SPOKEN PLESANT AND IN GOOD SPIRITS. DENIES CHEST PAIN, SOA OR DIZZY. SCRUGGS CATH TO DD. RECTAL TUBE IN PLACE W OUTPT. PM MEDS GIVEN, CRUSHED AND PUT IN APPLE SAUCE, SWALLOWED OKAY. ASSESSMENT COMPLETE, POC DISCUSSED.
[2021-05-06 00:01] VITALS: BP 142/97; PULSE 105; TEMP 98.3
--- NOTE | 2021-05-06 05:05 | NUR ---
RESTED THOUGH THE NIGHT WITHOUT INCIDENT. NEEDS MET.
[2021-05-06 05:15] VITALS: BP 104/91; PULSE 111; TEMP 97.8
[2021-05-06 08:53] LABS: CALCIUM 9.3 mg/dL (8.4-10.2); CREATININE, serum 0.69 (0.66-1.25)
[2021-05-06 09:39] VITALS: BP 129/60; PULSE 104; TEMP 97.8
--- NOTE | 2021-05-06 10:52 | NUR ---
Patient seems to be in a good mood today. Mother is in the room visiting. Patient took his medication crushed in applesauce w/o difficulty. PT/OT worked with the patient and got him to sit at the edge of the bed. Patient was anxious to do so and kept saying, "One more second". Patient's oygen demands did increase. Patient was at 5L HFNC, he dropped to 88% so this RN bumped him up to 6L HFNC and he went up to 92%... Rectal tube did leak when the patient sat up, so this RN and the PCT cleaned the patient up. More air was also added to the ballon to help prevent any furthering leaking. This RN is going to speak with the provider about potentionally removing the rectal tube.
[2021-05-06 11:45] VITALS: BP 134/64; PULSE 104; TEMP 97.9
[2021-05-06 12:23] LABS: ARTERIAL BLD GAS O2 SATURATION 94.4 % (92-100); ARTERIAL BLOOD GAS BASE EXCESS 0.3 (-2-2); ARTERIAL BLOOD GAS HCO3 24.8 meq/L (22-26); ARTERIAL BLOOD GAS PCO2 39.6 mmHg (35-45); ARTERIAL BLOOD GAS PO2 72.8 mmHg (80-100); ARTERIAL BLOOD GAS pH 7.41 (7.35-7.45)
--- NOTE | 2021-05-06 14:20 | NUR ---
Patient continues to rest in bed. Mom is still at the bedside. Patient has no complaints at this time. This RN discussed with the hospitalist removal of the rectal tube. Hospitalist stated it was up to this RN and the patient to make this decision. Only concern is that the patient has limited mobility and bathroom use is not an option at this time. This RN will discuss the idea with the patient and see if he would prefer to use a bedpan.
[2021-05-06 16:56] VITALS: BP 120/72; PULSE 88; TEMP 98.5
--- NOTE | 2021-05-06 18:25 | NUR ---
Patient refused removal of the rectal tube. Patient remains in good spirits and has done well.
[2021-05-06 19:48] VITALS: BP 153/90; PULSE 100; TEMP 97.6
--- NOTE | 2021-05-06 21:34 | NUR ---
PT RESTING COMFORTABLY IN BED. EVENING MEDICATIONS GIVEN. IV IS PATENT. PT COMPLAINS OF PAIN IN HIS TOES. HE DESCRIBES IT SHARP AND CONSTANT. HE STATES HE HAS HAD THIS PAIN SINCE BEING EXTUBATED. HE RATES THE PAIN A 10 ON THE NUMERIC SCALE. HE STATES HE WAS PREVIOUSLY TOLD IT COULD BE REALATED TO HIS DIABETES. PT HAS NO OTHER COMPLAINTS AT THIS TIME. LUNG SOUNDS ARE DIMINISHED. CALL LIGHT WITHIN REACH. WILL CONTINUE TO MONITOR.
[2021-05-07] VITALS (7 sets, daily range): BP systolic 127–145; BP diastolic 65–86; PULSE 86–109; TEMP 97.4–98.7
[2021-05-07 08:02] LABS: CALCIUM 9.1 mg/dL (8.4-10.2); CREATININE, serum 0.63 (0.66-1.25)
--- NOTE | 2021-05-07 08:39 | NUR ---
Patient working with speech therapy at this time. He took all of his morning medications crushed in applesauce w/o difficulty. Patient denied any pain and has no complaints at this time. Rectal tube and shelton in place, free of kinks, draining properly.
--- NOTE | 2021-05-07 11:49 | NUR ---
MARIBELL was notified the patients mother has not reached out or returned financial counselor's phone calls. MARIBELL met with patient and patient's mother to get update. Mother states reason for no response is that she is still unable to obtain required bank statement's due to the patients phone being locked. Patient's bank is located in [place] and cannot obtain required documents to retrieve statement's via different method. Advised patient and mother to call service provider IT Help desk, to achieve assistance in unlocking phone. MARIBELL encouraged patient's mother to reach out to Deisy Ayala [facility] and provided phone number.
--- NOTE | 2021-05-07 22:41 | NUR ---
PT RESTING COMFORTABLY IN BED. EVENING MEDICATIONS GIVEN. PT ON 5.5L OXYGEN VIA NC. PT DENIES ANY PAIN OTHER THAN IN THE TIPS OF HIS TOES, WHICH HAS BEEN NORMAL SINCE HIS EXTUBATION. SOME REDDENED SKIN NOTED TO HIS L WRIST, PT STATES THIS WAS ALSO PRESENT FOLLOWING HIS EXTUBATION. PT HAS NO OTHER COMPLAINTS AT THIS MOMENT. CALL LIGHT WITHIN REACH. WILL CONTINUE TO MONITOR.
[2021-05-08 03:59] VITALS: BP 146/94; PULSE 93; TEMP 97.9
[2021-05-08 08:00] VITALS: BP 126/85; PULSE 109; TEMP 97.5
--- NOTE | 2021-05-08 10:36 | NUR ---
PT PLEASANT, AOX4, BREAKFAST TRAY ARRIVED WHEN GOING INTO ROOM, MEDS GIVEN AND ASSESSMENT PERFORMED, SPEECH WANTS TO START GIVING MEDICATIONS WHOLE WITH WATER INSTEAD OF CRUSHED, SPEECH ASSESSING PT. GAVE REC FOR REGULAR DIET WITH THIN LIQUIDS, PHYSICIAN NOTIFIED OF CHANGE. NO OTHER NEEDS
[2021-05-08 11:48] VITALS: BP 135/77; PULSE 102; TEMP 97.9
[2021-05-08] MEDS ORDERED: PEPCID 20MG TAB20 MG PO (14:08)
[2021-05-08] MEDS ORDERED: TYLENOL 325MG325 MG PO (14:08)
[2021-05-08] MEDS ORDERED: LOVENOX 6060 MG/0.6 SQ (14:08)
[2021-05-08] MEDS ORDERED: IPRATROPIUM BROM3 M1 IH (14:08)
[2021-05-08] MEDS ORDERED: RT ALBUTER2.5 MG/0.5 IH (14:08)
[2021-05-08] MEDS ORDERED: DECADRON 4MG TAB4 MG PO (14:09)
[2021-05-08] MEDS ORDERED: LEVEMIR FLEX100 U/ML SQ (14:09)
[2021-05-08] MEDS ORDERED: NOVLOG SQ (14:09)
--- NOTE | 2021-05-08 16:05 | NUR ---
report given, pt transferred with belongings to ipr
--- NOTE | 2021-05-09 08:26 | NUR ---
*late entry* The patient discharged yesterday, 05/08, to [facility]. No additional needs at this time.
== END 2021-05-08 16:05 | DRG 207 ==
LOC: COL.ER 23:33 → ICU 04-12 01:06 → MEDICAL 04-12 01:06 → ICU 04-16 03:00 → MEDICAL 05-03 10:50
PROVIDERS: Emergency Medicine; Family Medicine; Internal Medicine; Internal Medicine Critical Care Medicine; Internal Medicine Pulmonary Disease; Internal Medicine Sleep Medicine; Student in an Organized Health Care Education/Training Program; ADMIT Internal Medicine
PROC: 0BH17EZ Insertion of Endotracheal Airway into Trachea, Via Natural or Artificial Opening (ICD-10-PCS; principal; 2021-04-12)
PROC: 5A1955Z Respiratory Ventilation, Greater than 96 Consecutive Hours (ICD-10-PCS; 2021-04-12)
PROC: 02HV33Z Insertion of Infusion Device into Superior Vena Cava, Percutaneous Approach (ICD-10-PCS; 2021-04-12)
PROC: XW033E5 Introduction of Remdesivir Anti-infective into Peripheral Vein, Percutaneous Approach, New Technology Group 5 (ICD-10-PCS; 2021-04-17)
PROC: 05HM33Z Insertion of Infusion Device into Right Internal Jugular Vein, Percutaneous Approach (ICD-10-PCS; 2021-04-24)
DX: U07.1 COVID-19 (principal); J96.01 Acute respiratory failure with hypoxia; J12.82 Pneumonia due to coronavirus disease 2019; N17.9 Acute kidney failure, unspecified; G72.81 Critical illness myopathy; K92.1 Melena; E87.0 Hyperosmolality and hypernatremia; E66.01 Morbid (severe) obesity due to excess calories; R36.9 Urethral discharge, unspecified; E11.65 Type 2 diabetes mellitus with hyperglycemia; R74.01 Elevation of levels of liver transaminase levels; E11.22 Type 2 diabetes mellitus with diabetic chronic kidney disease; N18.31 Chronic kidney disease, stage 3a; Z79.84 Long term (current) use of oral hypoglycemic drugs; E87.8 Other disorders of electrolyte and fluid balance, not elsewhere classified
CPT/HCPCS: 99232-AI; 99233-AI; 99239; A4314; C9113; J0330; J0360; J0610; J0696; J1100; J1450; J1644; J1650; J1815; J1940; J2060; J2250; J2270; J2543; J2704; J2997; J3010; J3370; J3411; J3475; J3480; J7030; J7040; J7050; J7120; J7131; J8540; Q0249

== ENCOUNTER 2021-05-08 12:37 | Inpatient (IN) | payer MEDICAID ==
[~2021-05-08] VITALS: Ht 185.4 cm; Wt 203.8 kg
[2021-05-08] MEDS ORDERED: RT ALBUTER2.5 MG/0.5 IH (14:08)
[2021-05-08] MEDS ORDERED: PEPCID 20MG TAB20 MG PO (14:08)
[2021-05-08] MEDS ORDERED: IPRATROPIUM BROM3 M1 IH (14:08)
[2021-05-08] MEDS ORDERED: TYLENOL 325MG325 MG PO (14:08)
[2021-05-08] MEDS ORDERED: LOVENOX 6060 MG/0.6 SQ (14:08)
[2021-05-08] MEDS ORDERED: LEVEMIR FLEX100 U/ML SQ (14:09)
[2021-05-08] MEDS ORDERED: NOVLOG SQ (14:09)
[2021-05-08] MEDS ORDERED: DECADRON 4MG TAB4 MG PO (14:09)
--- NOTE | 2021-05-08 16:15 | NUR ---
Patient transferred from Medical Room 313 to [facility] 340 at 1615. 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 Patient is on 4 liters of oxygen NC. Patient is on ADA diet with thin liquids. . Patient is A & O x 4 and full code. Patient is high risk. Patient has Ceja and rectal tube. Patient SATS in low to mid 90s.
[2021-05-08 17:56] VITALS: BP 123/90; PULSE 100; TEMP 97.7
--- NOTE | 2021-05-08 22:17 | NUR ---
Pt has been in good spirit. Vss. Pain rated 0/10. curently on 4L of O2. Will continue to wean down.
[2021-05-09 05:36] VITALS: BP 146/78; PULSE 100; TEMP 98.6
--- NOTE | 2021-05-09 06:30 | NUR ---
Report given by AWAIS Thompson. Patient is resting in bed. Call light and bedside table are within reach. Will contine to monitor patient throughout shift.
--- NOTE | 2021-05-09 14:24 | NUR ---
Welcomed pt & mother to Rehab unit. Explained the rehab process & goals. Complete SW assessment w/ pt. He is alert & oriented & able to communicate his needs & wants but is very soft spoken. He does not wear glasses, hearing is intact, & has his own teeth. He lives w/ his multiple family members. They live in a trailer home which has 4 steps to enter w/ bilateral handrails. The bathroom has a tub/shower combo w/ curtain but no grab bars. The toilet is standard height. Pt does not have any equipment or received any services. Prior to hospitalization, he was doing his own self care & mobility, & was able to do some shopping, drove, did his own medication management & finance management. [facility]: [facility] & reports no concerns or issues w/ affording his medications. Has no PCP or DPOA. Pt had no questions/concerns at this time about his rehab stay & actually went to sleep due to being very tired from the day's activities. Mother had questions/concerns & reassured her of what we are seeing is normal & to not get discouraged. SW will continue to provide support & assist w/ d/c planning.
--- NOTE | 2021-05-09 14:30 | NUR ---
Patient has completed all therapies for the day. Patient is resting in bed.
[2021-05-09 17:37] VITALS: BP 143/84; PULSE 107; TEMP 98
--- NOTE | 2021-05-09 21:12 | NUR ---
Pt Is complaining about rectal pain and want flexi-seal out. Tylenol was given as per pt request. flexil-seal out. Will continue to monitor.
[2021-05-10 05:02] VITALS: BP 141/98; PULSE 105; TEMP 98.1
--- NOTE | 2021-05-10 12:08 | NUR ---
Cyber Security Engineer offered to pray but nothing needed at this time.
[2021-05-10 15:15] VITALS: BP 141/88; PULSE 102; TEMP 98.8
--- NOTE | 2021-05-10 18:17 | NUR ---
Call placed to engineering to make patient's room cooler per patient request.
--- NOTE | 2021-05-10 18:18 | NUR ---
Patient was a max two assist with moving from side to side. Patient had his rectal tube removed last night per night nurse. Patient had a small BM this morning and medium this afternoon. He was dependent with all his toileting and used a bed sanchez. He was cleaned up and catheter care provided with stat lock placement. Patient is able to pull himself up in bed after he slides down. Patient had three episodes of emises (200 ml) this morning and was given prn zofran with good effect.
--- NOTE | 2021-05-10 21:16 | NUR ---
Pt has been in good spirit. He ate diner and tolerated it. Pain rated 0/10. Will continue to monitor.
[2021-05-11 05:37] VITALS: BP 150/112; PULSE 124; TEMP 98
--- NOTE | 2021-05-11 12:27 | NUR ---
Received orders from Dr. Bailey to be able to remove patient's catheter due to it leaking and orange sedement observed from the catheter. 8 ml's were removed from the catheter balloon prior to its removal. Patient had pain with the removal of the catheter. Straight cath was performed to get a clean catch urine with only 5 - 10 ml's being collected. This was sent to lab for culture. Patient had a large soft/liquid BM that was collected in the bed sanchez. He required max two assist with cleaning patient and then replacing sheets and pads. Will continue to monitor.
[2021-05-11 15:13] VITALS: BP 139/90; PULSE 103; TEMP 97.5
--- NOTE | 2021-05-11 22:34 | NUR ---
Pt has been doing good. Pain rated 0/10. Vss. Will continue to monitor.
[2021-05-12 04:58] VITALS: BP 151/96; PULSE 93; TEMP 97.7
--- NOTE | 2021-05-12 06:30 | NUR ---
Report received from AWAIS Thompson. Patient is resting in bed and has called for a bedpan. Patient denies pain at this time. Call light and bedside table are within reach. Will continue to monitor throughout shift.
--- NOTE | 2021-05-12 10:35 | NUR ---
Visited w/ pt & his mother. Pt stated he is feeling better today than he did this weekend. Noticed pt had a phone & inquired if he was able to get into. Mother stated she got him a new phone but was able to transfer everything. Inquired about access to pt's bank statements for financial services for the Medicaid application. They showed SW the statement but stated they are having difficulty downloading. Told them if they could take a screenshot that would be better then nothing. Offed to assist by sending them to to print for them & provided SW's contact information. The mother did comment that they have a phone interview on 06/04/21.
--- NOTE | 2021-05-12 13:45 | NUR ---
Admission QIM scores were reviewed by the team. Code of 5 chosen for oral hygiene was determined by team discussion to be the most usual performance before interventions for this patient during the assessment period. Code of 1 chosen for toilet hygiene was determined by team discussion to be the most usual performance for this patient during the assessment period. Code of 3 chosen for rolling left to right was determined by team discussion to be the most usual performance before interventions for this patient during the assessment period. Code of 1 chosen for sit to lying was determined by team discussion to be the most usual performance for this patient during the assessment period. Code of 1 chosen for lying to sitting on side of bed was determined by team discussion to be the most usual performance for this patient during the assessment period.-Maya Rainey, PD
--- NOTE | 2021-05-12 16:00 | NUR ---
Patient is through with all therapies for today. Patient is sitting in wheelchair. Call light and bedside table are within reach.
[2021-05-12 17:29] VITALS: BP 139/83; PULSE 87; TEMP 97.4
--- NOTE | 2021-05-12 22:28 | NUR ---
Pt has been ok. pain rated 0/10. Vss will continue to monitor.
[2021-05-13 05:19] VITALS: BP 145/87; PULSE 99; TEMP 97.2
--- NOTE | 2021-05-13 09:03 | NUR ---
Patient resting in bed beginning his speech therapy at this time.
--- NOTE | 2021-05-13 14:45 | NUR ---
Called Brisa Gallegos and Nasreen Rowland, but niether phone rang. This nurse was trying to report on a UC that was completed and needed follow up on. Will continue to try.
[2021-05-13 17:39] VITALS: BP 146/86; PULSE 98; TEMP 98.5
--- NOTE | 2021-05-13 18:27 | NUR ---
Urine Culture came back showing a UTI see new orders for Omnicef x 14 days. Patient just received his first dose tonight. He is resting in bed, call light in reach and bed alarm set. Will continue to monitor.
[2021-05-13 19:31] VITALS: BP 138/79; PULSE 87; TEMP 98.3
--- NOTE | 2021-05-14 04:00 | NUR ---
PATIENT RESTING IN BED ALERT AND ORIENTED X4. DENIES PAIN OR SOB. VSS. ON 2L NC SAT 92%. INCONTINENT OF LARGE AMOUNT OF URINE. JEFERSON CARE PROVIDED. TURNES AND REPOSITIONED WITH 1 ASSIST. WILL CONTINUE TO MONITOR.
[2021-05-14 04:22] VITALS: BP 150/93; PULSE 87; TEMP 97.5
[2021-05-14 09:11] LABS: HEMATOCRIT 40.3 % (42.0-52.0); HEMOGLOBIN 12.9 g/dl (13.5-18.0); MEAN CELL VOLUME 92 fl (80.0-100.0); MEAN CORPUSCULAR HEMOGLOBIN 30 pg (27.0-31.0); MEAN CORPUSCULAR HGB CONC 32 g/dl (33.0-37.0); MEAN PLATELET VOLUME 11.3 fl (7.4-10.4); PLATELET COUNT 133 K/mm3 (130-400); RED BLOOD COUNT 4.36 M/mm3 (4.20-5.60); REDCELL DISTRIBUTION WIDTH-CV 17.2 % (11.5-14.5)
[2021-05-14 09:18] LABS: ALBUMIN 3.9 gm/dL (3.5-5.0); BILIRUBIN,TOTAL 1.2 mg/dL (0.0-1.0); CALCIUM 9.3 mg/dL (8.4-10.2); CREATININE, serum 0.65 (0.66-1.25); POTASSIUM 3.5 mmol/L (3.4-5.0); TOTAL PROTEIN 6.4 gm/dL (6.4-8.2)
[2021-05-14 10:15] LABS: ANISOCYTOSIS 1+; HYPOCHROMIA 1+; LYMPHOCYTE 17 % (20.0-51.0); METAMYELOCYTE 2 % (0-0); PLATELET ESTIMATE NORMAL (NORMAL)
[2021-05-14 10:16] LABS: NEUTROPHILS 72 % (42.0-75.2)
--- NOTE | 2021-05-14 15:35 | NUR ---
Reviewed team conference notes w/ pt. He state he understood & agreed w/ his current functioning. Informed him the team will re-evaluate next 05/21/21. Pt had no questions/concerns at this time.
[2021-05-14 18:00] VITALS: BP 144/73; PULSE 98; TEMP 98.6
--- NOTE | 2021-05-14 19:40 | NUR ---
Patient attended all therapies this shift. He denied pain. He was incontinent of urine this shift and used the bed sanchez this afternoon having a Medium soft formed BM. He ambulated via full body lift and was seen wheeling in his wheelchair with therapy down to the therapy room. Patient was dependent with all his toileting care, but did assist staff with rolling from side to side. He is able to pull himself up in bed when staff adjust the bed to trendelenburg position. He was in a pleasent mood this shift. He mother was with him for all his therapies this morning. He was incontient of urine this evening and required two person assist with changing his brief.
--- NOTE | 2021-05-14 21:57 | NUR ---
PATIENT ALERT AND ORIENTED. SITTING UP IN BED IN GOOD SPIRIT. INCONTINENT OF URINE, JEFERSON CARE PROVIDED. VSS. DENIES ANY ISSUES AT THIS TIME. ALL LIGHT WITHIN REACH WILL CONTINUE TO MONITOR.
[2021-05-15 06:18] VITALS: BP 140/89; PULSE 85; TEMP 97.6
--- NOTE | 2021-05-15 06:30 | NUR ---
Report received from AWAIS Johnson. Patient is sleeping in bed. Call light and bedside table are within reach. Will continue to monitor patient throughout shift.
--- NOTE | 2021-05-15 08:30 | NUR ---
This nurse titrated patient to 0 liter. Will monitor patient throughout shift.
[2021-05-15 17:05] VITALS: BP 146/85; PULSE 93; TEMP 97.9
[2021-05-16 06:18] VITALS: BP 146/96; PULSE 89; TEMP 98.3
--- NOTE | 2021-05-16 06:30 | NUR ---
Report received from AWAIS Johnson. Patient is sleeping in bed. Call light and bedside table are within reach. Will continue to monitor patient throughout shift.
--- NOTE | 2021-05-16 07:01 | NUR ---
PATIENT RESTING NO EVENT OVERNIGHT. DESAT TO 82% ON RA WHILE SLEEPING, RT PLACE TO ON 2L NC SAT IN THE MID 90'S. INCONTINENT OF URINE AND LARGE BM LAST NIGHT. VSS. WILL CONTINUE TO MONITOR.
[2021-05-16 08:02] LABS: INR 1.1 (0.8-3.0); PROTHROMBIN TIME 11.8 SECONDS (9.7-12.8)
[2021-05-16 08:03] LABS: HEMATOCRIT 38.8 % (42.0-52.0); HEMOGLOBIN 12.6 g/dl (13.5-18.0); MEAN CELL VOLUME 92 fl (80.0-100.0); MEAN CORPUSCULAR HEMOGLOBIN 30 pg (27.0-31.0); MEAN CORPUSCULAR HGB CONC 33 g/dl (33.0-37.0); MEAN PLATELET VOLUME 12.1 fl (7.4-10.4); PLATELET COUNT 124 K/mm3 (130-400); REDCELL DISTRIBUTION WIDTH-CV 17.3 % (11.5-14.5)
[2021-05-16 08:12] LABS: ALBUMIN 3.6 gm/dL (3.5-5.0); BILIRUBIN,TOTAL 0.9 mg/dL (0.0-1.0); CREATININE, serum 0.63 (0.66-1.25); MAGNESIUM 1.9 mg/dL (1.6-2.3); POTASSIUM 3.6 mmol/L (3.4-5.0); TOTAL PROTEIN 5.9 gm/dL (6.4-8.2)
[2021-05-16 10:02] LABS: BAND 5 % (0-10); LYMPHOCYTE 17 % (20.0-51.0); NEUTROPHILS 66 % (42.0-75.2)
[2021-05-16 10:03] LABS: ANISOCYTOSIS 1+; EOSINOPHIL 1 % (0-4); PLATELET ESTIMATE DECREASED (NORMAL)
--- NOTE | 2021-05-16 14:57 | NUR ---
Patient has completed all therapies and is resting in bed. Call light and bedside table are within reach.
[2021-05-16 17:56] VITALS: BP 131/85; PULSE 98; TEMP 98.2
--- NOTE | 2021-05-16 21:41 | NUR ---
Pt has been good.Pain rated 0/10.Vss.Will continue to monitor.
[2021-05-17 05:26] VITALS: BP 149/97; PULSE 85; TEMP 97.5
[2021-05-17 08:00] VITALS: BP 140/89; PULSE 107; TEMP 97.5
[2021-05-17 12:00] VITALS: BP 126/84; PULSE 105; TEMP 98.2
[2021-05-17 16:00] VITALS: BP 146/88; PULSE 99; TEMP 98.1
--- NOTE | 2021-05-17 21:50 | NUR ---
Pt has been in good spirit. Pain rated 0/10. Bp is elevated. Will continue to monitor.
[2021-05-18 04:59] VITALS: BP 135/80; PULSE 59; TEMP 97.9
--- NOTE | 2021-05-18 08:23 | NUR ---
Patient resting in bed, call light in reach and denies questions at this time. Denies pain. Tolerating diet well this morning. Will continue to monitor.
[2021-05-18 17:05] VITALS: BP 156/111; PULSE 82; TEMP 98.3
--- NOTE | 2021-05-18 19:15 | NUR ---
Patient restinging in bed on a bed sanchez at this time. He was continent of urine this shift using his urinal, but having staff empty it for him. Patient tolerated diet well this shift. Denied pain and he visited with family earlier this shift. Reported off to night nurse.
[2021-05-18 20:09] VITALS: BP 117/64; PULSE 65; TEMP 98.6
--- NOTE | 2021-05-18 21:33 | NUR ---
Pt has been good.Pain rated 0/10. Vss. Will continue to monitor.
[2021-05-19 05:13] VITALS: BP 145/90; PULSE 74; TEMP 98.3
--- NOTE | 2021-05-19 06:30 | NUR ---
Report received by AWAIS Johnson. Patient is sleeping in bed. Call light and bedside table are within reach. Will continue to monitor patient throughout shift.
--- NOTE | 2021-05-19 11:00 | NUR ---
Patient is visiting with mother
--- NOTE | 2021-05-19 14:00 | NUR ---
Patient has completed all therapies for the day and is resing in bed. Patient called for urinal and bed sanchez. Patient had a small BM. This nurse encouraged patient to drink water to avoid dehydration and/or getting an UTI. Call light and bedside table are within reach.
--- NOTE | 2021-05-19 14:30 | NUR ---
Patient's mother is leaving for the day.
--- NOTE | 2021-05-19 14:47 | NUR ---
Visited w/ pt & his mother. Pt very excited about being able to stand today & going outside. Provided pt w/ praise & encouragement. Mother had questions, which SW answered for her.
[2021-05-19 17:59] VITALS: BP 144/86; PULSE 83; TEMP 98.4
[2021-05-20 05:06] VITALS: BP 142/98; PULSE 77; TEMP 97.4
--- NOTE | 2021-05-20 07:08 | NUR ---
Report received from AWAIS Thompson. Patient is resting in bed. Call light and bedside table are within reach. Will continue to monitor patient throughout shift.
[2021-05-20 17:01] VITALS: BP 146/87; PULSE 87; TEMP 97.9
--- NOTE | 2021-05-20 19:42 | NUR ---
RECEIVED CHANGE OF SHIFT REPORT FROM DAY SHIFT NURSE. PATIENT IN SPECIALTY BED, VERY WEAK, USE OF LIFT WITH OUT OF BED TRANSFERS FROM BED TO W/C AND BACK. DENIES ANY NEEDS AT THIS TIME.
--- NOTE | 2021-05-21 00:30 | NUR ---
PATIENT SLEEPING, DOES NOT WAKE WHEN STAFF ENTER ROOM. BREATHING NONLABORED AND EVEN. NASAL CANNULA IN PLACE. CALL LIGHT WITHIN REACH.
--- NOTE | 2021-05-21 02:00 | NUR ---
PER RT, PATIENT ON RA WITH O2 SAT AROUND LOWER 90'S
[2021-05-21 04:35] VITALS: BP 152/101; PULSE 90; TEMP 98.4
--- NOTE | 2021-05-21 04:42 | NUR ---
PER PCT, BP ELEVATED WITH OX SAT LESS OR EQUAL TO 90%. O2 CHANGED FROM ROOM AIR TO 1 LPM/NC. INFORMED RT OF PATIENT BACK ON O2 PER AK. PATIENT DENIED ANY C/O SOA OR CHEST PAIN AT TIME OF O2 PLACEMENT.
[2021-05-21 04:52] VITALS: BP 151/105; PULSE 94
--- NOTE | 2021-05-21 05:05 | NUR ---
INFORMED ONCALL HOSP PROVIDER OF ABN VS, SEE [facility] FOR VS. NO ORDERS ENTERED AT TIME OF CALL BY PROVIDER.
--- NOTE | 2021-05-21 07:17 | NUR ---
CHANGE OF SHIFT REPORT GIVEN TO DAY SHIFT NURSE, FORTUNATO ERNANDEZ.
--- NOTE | 2021-05-21 07:48 | NUR ---
Patient reporting pain to his left big toe and 2nd digit toe. This started 2 days ago. It kept him awake last night with a constant ache that goes from the top of the top of the toe down to the base of toe and then back up. This will be reported to physician today. Will continue to monitor.
--- NOTE | 2021-05-21 12:41 | NUR ---
Patient resting in wheelchair, call light in reach and alarm set. He is eating his lunch at this time. Will continue to monitor.
--- NOTE | 2021-05-21 13:39 | NUR ---
Patient working with physical therapy at this time.
--- NOTE | 2021-05-21 14:24 | NUR ---
Reviewed team conference notes w/ pt. He stated he agreed w/ his current level of functioning. He talked about being able to stand today for 2 mins. Provided praise & encouragement to keep doing more. He told SW that is goal is to be able to stand for 5 min by Wednesday & then start walking. Informed him that the team will re-evalute his progress next Wednesday. Pt had no questions or concerns at this time.
[2021-05-21 16:27] VITALS: BP 137/74; PULSE 81; TEMP 97.8
--- NOTE | 2021-05-21 17:36 | NUR ---
Patient attended all therapies this shift. He denied pain this afternoon. This nurse tried to get a weight on patient this afternoon following therapies, but the bed scale kept saying there was an error. Will attempt to get a weight again tomorrow. Patient used the bed sanchez this afternoon and had a Large Soft Formed BM. He was continent of bowel and uses the urinal, but does have some incontience at times with bladder. He is currently eating his supper, denies questions has call light near him, bed alarm set and watching shows on his cell phone. Will continue to monitor.
--- NOTE | 2021-05-21 18:50 | NUR ---
RECEIVED CHANGE OF SHIFT REPORT FROM DAY SHIFT NURSE. CALL LIGHT WITHIN REACH.
--- NOTE | 2021-05-22 02:05 | NUR ---
PATIENT SLEEPING, DOES NOT WAKE WHEN ROOM ENTERED BY STAFF DURING ROUNDING. SPECIALTY BED IN USE, PATIENT WITH CONTINUES BLE WEAKNESS REQUIRING USE OF TAYO LIFT FOR OUT OF BED TRANSFER TO AND FROM BED & CHAIR. WEARING OXYGEN AT NIGHT VIA NC. VOIDING WITH NO REPORTED PROBLEMS OR CONCERNS TO STAFF. CALL LIGHT WITHIN PATIENT REACH DURING SHIFT.
[2021-05-22 05:31] VITALS: BP 148/106; PULSE 82; TEMP 97.1
--- NOTE | 2021-05-22 06:54 | NUR ---
CHANGE OF SHIFT REPORT GIVEN TO DAY SHIFT NURSE, FORTUNATO ERNANDEZ.
--- NOTE | 2021-05-22 09:52 | NUR ---
Patient working with OT/PT at this time. Mother is here visiting at this time. Patient denies pain or questions.
--- NOTE | 2021-05-22 11:28 | NUR ---
Bedding was changed per this nurse. Patient currently at Group Therapy at this time. Tolerated diet well this morning. Denies any pain. He was a full body lift from bed to wheelchair this morning.
--- NOTE | 2021-05-22 12:07 | NUR ---
Patient resting in wheelchair with mother providing him a bed bath and shampoo at this time.
[2021-05-22 15:58] VITALS: BP 136/68; PULSE 84; TEMP 97.7
--- NOTE | 2021-05-22 18:56 | NUR ---
RECEIVED CHANGE OF SHIFT REPORT FROM DAY SHIFT NURSE.
--- NOTE | 2021-05-22 19:29 | NUR ---
Patient tolerated all therapies and diet today. Denied pain this shift. His mother gave him a bed bath this afternoon. Patient using the urinal on his own and calling nursing staff to assist with emptying urinal appropriatly. Patient was seen by Dr. Isaacs. See new orders for starting Metformin BID with food, starting Lisinopril daily and discontinuing Levimer insulin. His Decadron was also decreased from 3 Mg to 2 Mg. Patient was updated on all these changes and voiced understanding. Patient currently resting in bed, call light in reach and bed alarm set. Reported off to night nurse.
[2021-05-23 03:55] VITALS: BP 136/96; PULSE 87; TEMP 98
--- NOTE | 2021-05-23 07:10 | NUR ---
CHANGE OF SHIFT REPORT GIVEN TO DAY SHIFT NURSE, JUAREZ RN. PATIENT SLEPT THROUGHOUT NIGHT WITH NO REPORTED COMPLAINTS OR CONCERNS. ABLE TO REPOSITIONED SELF SLIGHTLY, SHIFTING HIPS. GETS UP WITH LIFT, MAX ASSIST OF X2 STAFF.
--- NOTE | 2021-05-23 07:41 | NUR ---
Pt assessment complete. Pt sitting up in bed just finished with breakfast, he is A/O x4. His breathing is currently even and unlabored on RA. Pt denies SOB. No pain at this time. No further needs, call light within reach.
--- NOTE | 2021-05-23 14:21 | NUR ---
Visited w/ pt, who stated he was doing well & had no concerns. He did report standing for 3 minutes today. Provided encouragement & praise.
[2021-05-23 16:04] VITALS: BP 135/68; PULSE 96; TEMP 97.8
--- NOTE | 2021-05-23 20:50 | NUR ---
NOTIFIED Juan R ALCOCER OF PT'S C/O TOES PAIN. SENSITIVE TO TOUCH TIPS OF TOES. SEE MAR FOR NEW ORDER OF IBUPROFEN.
--- NOTE | 2021-05-23 22:00 | NUR ---
USED URIANL TO VOID. LORY CLEAR RETURN. PT RESTING ON MAX AIR MATTRESS. PT MORBIDLY OBESE. ABD BRUISED FROM LOVENEOX INJECTIONS. INNER BUTTOCK SL RED. USING DESITIN OINTMENT. CALL LIGHT IN REACH. PT DOES NOT ATTEMPT TO GET OUT BED PER SELF. NO BED ALARM ON THIS BED.
[2021-05-24 04:49] VITALS: BP 118/65; PULSE 82; TEMP 97.8
--- NOTE | 2021-05-24 05:31 | NUR ---
PT HAS RESTED WELL THIS NIGHT. NO RESP DISTRESS DURING NIGHT. 02 1 L NC. NO FURTHER COMPLAINTS OF TOE PAIN ON TIPS. USING BEDPAN AND USING URINAL. UNEVENETFUL NIGHT.
--- NOTE | 2021-05-24 07:05 | NUR ---
Report received from AWAIS العلي. Patient is sleeping in bed. Call light and bedside table are within reach. Will continue to monitor throughout shift.
--- NOTE | 2021-05-24 12:30 | NUR ---
Patient participated in group therapy. All therapy is complete for the day. Patient had to be put back in bed to use the bedpan because he has to be transferred with the Giovani lift. The patient was told he is going to get up prior to dinner. Call light and bedside table are within reach.
--- NOTE | 2021-05-24 16:15 | NUR ---
Patient had one episode of diarrhea. Patient states he has noticed episode of diarrhea since he started Metformin.
[2021-05-24 18:32] VITALS: BP 135/66; PULSE 100; TEMP 97.8
--- NOTE | 2021-05-24 19:00 | NUR ---
PT SITTING UP IN WC. 2:1 ASSIST WITH TAYO LIFT TRANSFER BACK TO BED. PT NIMCO WELL. PT RESTING ON MAX AIR BARIATRIC MATTRESS. PT DENIES NEEDS AT THIS TIME.
[2021-05-25 04:45] VITALS: BP 146/93; PULSE 78; TEMP 97.9
--- NOTE | 2021-05-25 06:50 | NUR ---
Report received by AWAIS العلي. Patient is sleeping in bed. Call light and bedside table are within reach. Will continue to monitor patient throughout shift.
--- NOTE | 2021-05-25 11:30 | NUR ---
Patient with < 150 feet in wheelchair and only stopped twice. Patient states he feels weak in left arm which slows him down.
--- NOTE | 2021-05-25 11:40 | NUR ---
Patient's mother is visiting with him.
--- NOTE | 2021-05-25 15:15 | NUR ---
Patient's mother has left for the day. Call light and bedside table are within reach.
[2021-05-25 17:13] VITALS: BP 137/90; PULSE 79; TEMP 98
--- NOTE | 2021-05-25 19:37 | NUR ---
PT RESTING IN MAX AIR BARIATRIC BED. DENIES COMPLAINTS AT THIS TIME. CALL LIGHT IN REACH. PLAYING GAME ON CELL PHONE.
[2021-05-26 05:07] VITALS: BP 151/93; PULSE 86; TEMP 97.9
[2021-05-26 07:01] LABS: BASO % 0.5 % (0.0-2.0); EOS # 0.2 (0.0-0.7); EOS % 2.4 % (0-4.0); GRAN # 4.9 (1.4-6.5); GRAN % 59.7 % (42.2-75.2); HEMATOCRIT 42.5 % (42.0-52.0); HEMOGLOBIN 13.8 g/dl (13.5-18.0); LYMPH # 2.2 (1.2-3.4); LYMPH % 26.3 % (20.0-51.0); MEAN CELL VOLUME 93 fl (80.0-100.0); MEAN CORPUSCULAR HEMOGLOBIN 30 pg (27.0-31.0); MEAN CORPUSCULAR HGB CONC 33 g/dl (33.0-37.0); MEAN PLATELET VOLUME 10.7 fl (7.4-10.4); MONO # 0.8 (0.1-0.6); MONO % 10.2 % (1.7-9.3); PLATELET COUNT 212 K/mm3 (130-400); RED BLOOD COUNT 4.57 M/mm3 (4.20-5.60); REDCELL DISTRIBUTION WIDTH-CV 18.1 % (11.5-14.5)
--- NOTE | 2021-05-26 07:09 | NUR ---
PT WOULD BENEFIT FROM OUTPT SLEEP STUDY AFTER ADMISSION COURSE.
[2021-05-26 07:17] LABS: ALBUMIN 3.5 gm/dL (3.5-5.0); BILIRUBIN,TOTAL 0.7 mg/dL (0.0-1.0); CREATININE, serum 0.64 (0.66-1.25); MAGNESIUM 1.7 mg/dL (1.6-2.3); POTASSIUM 3.7 mmol/L (3.4-5.0)
--- NOTE | 2021-05-26 08:00 | NUR ---
Patient sitting up in bed watching his cell phone. A&Ox4. VSS. Denies pain and discomfort. Patient ate breakfast independently. No further needs expressed. Waiting to start therapy. Call light within reach
--- NOTE | 2021-05-26 14:03 | NUR ---
Visited w/ pt & mother. Pt stated he had a bad weekend & explained that he had diarrhea due to the diabetic medication. He went on to explain about an incident w/ the LANDSCAPE LABORER trying to get him to the bathroom toilet via the delvin lift but it didn't work. Apoligized to him. His mother did have a questions about some paper work she received from disability. Explained what it was in regards to, which pt has a phone interview on Jun 04 @ 11:00 am. She stated they are wanting medical records & explained that she needs to have Roger complete the form & take it to medical records for them to handle it.
[2021-05-26 16:03] VITALS: BP 124/72; PULSE 91; TEMP 97.7
--- NOTE | 2021-05-26 18:00 | NUR ---
Patient had an uneventful day. Worked with therapy and tolerated without difficulty. Did have complaints about sitting in the wheelchair 6+ hours while doing/waiting on therapy. Therapist aware. A&Ox3. VSS. Patient independent with feeds. No further needs expressed from the patient. Call light within reach
--- NOTE | 2021-05-26 18:56 | NUR ---
RECEIVED CHANGE OF SHIFT REPORT FROM DAY SHIFT NURSE. PATIENT IN BED, DENIES ANY NEEDS AT THIS TIME. CALL LIGHT WITHIN REACH.
--- NOTE | 2021-05-27 00:30 | NUR ---
PATIENT REQUIRES LIFT WITH TRANSFER FOR OUT OF BED ACTIVITIES. DENIES CHEST PAIN/SOA AT THIS TIME. DENIES NUMBNESS/TINGLING TO EXTREMITIES AT THIS TIME. BREATHING NONLABORED, EVEN WITH SLEEPING, PATIENT DOES NOT WAKE WHEN STAFF ENTER ROOM ON ROUNDS. CALL LIGHT WITHIN REACH.
[2021-05-27 05:33] VITALS: BP 133/84; PULSE 89; TEMP 97.7
--- NOTE | 2021-05-27 10:33 | NUR ---
Patient attending Group Therapy at this time. Denies pain or questions at this time. Patient was excited that he was able to stand for 5 minutes this morning with therapy. He is able to wheel himself in wheelchair from room to elevator. Will continue to monitor.
--- NOTE | 2021-05-27 15:18 | NUR ---
Patient was dependent using the delvin lift from wheelchair to the bed. Patient able to reposition himself in bed. Denies pain to his coccyx/bottom this morning/afternoon. He is currently resting in bed, call light in reach and watching his I-phone. Will continue to monitor.
[2021-05-27 16:52] VITALS: BP 140/72; PULSE 98; TEMP 98
--- NOTE | 2021-05-27 18:48 | NUR ---
RECEIVED CHANGE OF SHIFT REPORT FROM DAY SHIFT NURSE.
[2021-05-28 03:21] VITALS: BP 131/79; PULSE 89; TEMP 79.6
--- NOTE | 2021-05-28 03:25 | NUR ---
DENIES CHEST PAIN/SOA. WANTS O2 PER NC OFF WHILE AWAKE, USING BED LE. NO OTHER NEEDS REPORTED.
--- NOTE | 2021-05-28 05:45 | NUR ---
FSBS 79 VALUE, GIVEN 222 ML REGULAR SODA, WILL RECHECK FSBS WITH 20 MIN.
--- NOTE | 2021-05-28 07:09 | NUR ---
CHANGE OF SHIFT REPORT GIVEN TO DAY SHIFT NURSE, FORTUNATO ERNANDEZ.
--- NOTE | 2021-05-28 07:50 | NUR ---
Patient resting in bed, call light in reach and just finished his breakfast.
--- NOTE | 2021-05-28 11:11 | NUR ---
Reviewed team conference notes w/ pt. He stated he agreed w/ current level of functioning. Informed him that the team plans to re-evaluate next 06/04/21. Pt had no questions/concerns at this time.
--- NOTE | 2021-05-28 14:25 | NUR ---
Patient resting in bed, call light in reach and watching his I phone. He had a medium BM this afternoon via the bed sanchez and uses the urinal without spilling only asking staff to empty urinal for him. Patient did walk this afternoon when working with PT/OT. He was very excited about the progress. He is having difficulty with sleeping at night. Will discuss with provider.
--- NOTE | 2021-05-28 15:36 | NUR ---
Patient was dependent using the full body lift from wheelchair to the bed this afternoon. He was incontinent of stool due to diarrhea and he was a one person mod assist with changing clothing and cleaning patient off. Patient was a mod assist with taking off and on his pants. He is currently resting in bed, call light in reach and alarm set. Will continue to monitor.
[2021-05-28 17:03] VITALS: BP 127/71; PULSE 94; TEMP 97.7
--- NOTE | 2021-05-28 18:54 | NUR ---
RECEIVED CHANGE OF SHIFT REPORT FROM DAY SHIFT NURSE. RESTING IN BED WITH CALL LIGHT WITHIN REACH.
[2021-05-29 03:45] VITALS: BP 132/78; PULSE 85; TEMP 97.9
--- NOTE | 2021-05-29 06:30 | NUR ---
Report received from AWAIS Jose. Patient is in bed sleeping. Call light and bedside table are within reach. Will continue to monitor throughout shift.
--- NOTE | 2021-05-29 07:10 | NUR ---
CHANGE OF SHIFT REPORT GIVEN TO DAY SHIFT NURSE, BETHANY ERNANDEZ.
--- NOTE | 2021-05-29 11:30 | NUR ---
Patient has completed all therapies for the day. Patient is in wheelchair and mother is at bedside. Patient denies pain at this time. Call light and bedside table are within reach.
[2021-05-29 17:10] VITALS: BP 122/48; PULSE 89; TEMP 97.4
--- NOTE | 2021-05-29 21:21 | NUR ---
Assessment completed , alert and oriented. Patient is comfortably lying in bariatric bed watching TV. No complains, urinal emptied and has 600ml. Complains of being bruised in his belly with all the shots, otherwise no further complain, bedside table, urinal and call light is iwthin reach. Continue to follow.
[2021-05-30 03:41] VITALS: BP 121/56; BP 146/85; PULSE 69; PULSE 76; TEMP 97.8
--- NOTE | 2021-05-30 06:51 | NUR ---
Report received from AWAIS Macedo. Patient is sleeping in bed. Call light and bedside table are within reach. Will continue to monitor patient throughout shift.
--- NOTE | 2021-05-30 10:40 | NUR ---
Patient was able to pivot transfer from wheelchair to bedside toilet. Patient was anxious about transfer but was able to complete transfer.
--- NOTE | 2021-05-30 14:30 | NUR ---
Patient has completed all therapies for the day. Patient was able to stand up with minimal assistance from staff and pivot transfer to sitting on side of bed. Patient continues to c/o pain in arms from holding self up. Patient is now resting in bed. Call light and bedside table are within reach.
[2021-05-30 17:38] VITALS: BP 117/72; PULSE 90; TEMP 98
--- NOTE | 2021-05-30 20:38 | NUR ---
Assessment completed, alert and oriented. Patient si comfortably lying in bed with his cellphone. Denies pain or SOB. RN emptied the urinal with good urine output. Patient said that he was able to get up with RN and classroom technology technician to the bathroom and had a bowel movement. He is on bariatric bed, no futher complains and will continue to follow for he nights. Bed alarm is on and call light is within reach.
[2021-05-31 03:30] VITALS: BP 120/61; PULSE 75; TEMP 97.4
[2021-05-31 16:53] VITALS: BP 122/63; PULSE 95; TEMP 97.9
--- NOTE | 2021-05-31 19:32 | NUR ---
Patient had two loose bowel movements this shift and was given prn imodium with good effect. Patient attended group therapy this morning and was dependent using full body lift to the wheelchair and back to the bed. Patient in a pleasent mood this shift. Denied pain or questions. Reported off to night nurse.
--- NOTE | 2021-05-31 20:53 | NUR ---
Patient is comfortably lying in his bariatric bed with his cellphone. Alert and oriented denies pain or SOB. Patient is at room air. He used the urinal to pee and got emptied 300. No complains noted, bedside table ,call light, urinal is within reach. Will continue to follow for the nights.
[2021-06-01 04:00] VITALS: BP 114/62; PULSE 74; TEMP 97.6
--- NOTE | 2021-06-01 10:52 | NUR ---
Patient woke up at approx. 7 am this morning and was independent with eating his breakfast. He uses the urinal himself and calls for staff to empty it. Patient was a pivot transfer from the bed to his wheelchair this morning with two staff using mod assist. Patient currently resting in wheelchair watching his phone. Will continue to monitor.
--- NOTE | 2021-06-01 15:32 | NUR ---
Patient was dependent with transferring from wheelchair to the bed this afternoon. Two attempts were tried to stand up with walker from the wheelchair with no success. Patient also tried to pull himself up from the chair via the bed side rail and this was unsuccessful. So he was dependent with transferring to the bed via assistance of two staff members. Patient used the bed sanchez and required staff to wipe him. He was continent with using the urinal. He has tolerated his diet well this shift. Patient's mother stopped by this afternoon to visit. Patient currently resting in bed, call light in reach and denies any questions.
[2021-06-01 16:44] VITALS: BP 127/67; PULSE 98; TEMP 97.9
--- NOTE | 2021-06-01 18:54 | NUR ---
RECEIVED CHANGE OF SHIFT REPORT FROM DAY SHIFT NURSE. CONTINUES ON SPECIALTY BED WITH CALL LIGHT WITHIN REACH.
--- NOTE | 2021-06-01 23:32 | NUR ---
PATIENT WITH CONTINUED BLE WEAKNESS, NEEDING TOTAL LIFT DEVICE FOR TRANSFERS FROM CHAIR TO BED, UNABLE TO TRANSITION FROM SIT TO STAND DUE TO BLE WEAKNESS. DENIES CHEST PAIN/SOA AT THIS TIME. DENIES NUMBNESS/TINGLING TO EXTREMITIES AT THIS TIME. CALL LIGHT WITHIN REACH. CONTINUES ON SPECIALTY BED.
--- NOTE | 2021-06-02 01:24 | NUR ---
URINAL EMPTIED, DENIES ANY NEEDS OR COMPLAINTS AT THIS TIME. CALL LIGHT WITHIN REACH.
[2021-06-02 04:31] VITALS: BP 131/91; PULSE 82; TEMP 97.6
--- NOTE | 2021-06-02 06:34 | NUR ---
Report received from Rebeca ERNANDEZ. Patient is sleeping in bed. Call light and bedside table are within reach. Will continue to monitor patient throughout shift.
--- NOTE | 2021-06-02 07:08 | NUR ---
CHANGE OF SHIFT REPORT GIVEN TO DAY SHIFT NURSE, BETHANY ERNANDEZ.
--- NOTE | 2021-06-02 14:00 | NUR ---
All therapies completed for the day. Mom is at bedside. Patient was able to transfer from to sit on side of bed with assistance. Patient denies pain at this time.
[2021-06-02 18:00] VITALS: BP 107/56; PULSE 111; TEMP 98.3
--- NOTE | 2021-06-02 19:00 | NUR ---
RECEIVED CHANGE OF SHIFT REPORT FROM DAY SHIFT NURSE. CONTINUES TO REQUIRE SPECIALTY BED, CALL LIGHT WITHIN REACH.
--- NOTE | 2021-06-03 03:31 | NUR ---
PATIENT SLEEPS, DOES NOT WAKE WHEN STAFF ENTER ROOM ON ROUNDS. OBSERVED BREATHING NONLABORED AND EVEN. CALL LIGHT WITHIN REACH. CONTINUES ON SPECIALTY BED. ABLE TO TAKE FEW STEPS WITH THERAPY REPORTED DURING SHIFT CHANGE REPORT WITH PATIENT TOLERATING ACTIVITY FOR SHORT PERIODS.
[2021-06-03 04:06] VITALS: BP 112/81; PULSE 94; TEMP 97.9
--- NOTE | 2021-06-03 06:30 | NUR ---
Report received from AWAIS Jose. Patient is sleeping in bed. Call light and bedside table are within reach. Will continue to monitor patient throughout shift.
--- NOTE | 2021-06-03 06:59 | NUR ---
CHANGE OF SHIFT REPORT GIVEN TO DAY SHIFT NURSE, BETHANY ERNANDEZ.
--- NOTE | 2021-06-03 14:27 | NUR ---
Patient has completed all therapies for the day. Patient is resting in bed and denies pain at this time. Call light and bedside table are within reach.
[2021-06-03 17:30] VITALS: BP 128/72; PULSE 95; TEMP 98.3
--- NOTE | 2021-06-03 19:30 | NUR ---
RECEIVED CHANGE OF SHIFT REPORT FROM DAY SHIFT NURSE. CONTINUES TO USE SPECIALTY BED, CALL LIGHT WITHIN REACH.
--- NOTE | 2021-06-04 01:54 | NUR ---
PATIENT UP TO BATHROOM WITH SBA OF X2 STAFF FOR SAFETY DUE TO PATIENT MORBID OBESITY. PATIENT C/O DIABETIC RELATED PAIN TO BOTH FEET WHEN UP WALKING.
[2021-06-04 05:02] VITALS: BP 122/77; PULSE 106; TEMP 98.4
--- NOTE | 2021-06-04 07:23 | NUR ---
CHANGE OF SHIFT REPORT GIVEN TO DAY SHIFT NURSETOMASZ RN.
[2021-06-04 07:56] VITALS: BP 126/83; PULSE 105; TEMP 97.5
--- NOTE | 2021-06-04 15:03 | NUR ---
Reviewed team confence notes w/ pt & his mother. They stated they understood & agreed w/ the current level of functioning. Informed them that the team will re-evaluate again next week but will probably be talking about a d/c date at that time. Did talk to the mother about doing a pt/family meeting next Wednesday. She asked if would work, so scheduled meeting for 1:00 pm on 06/12/21.
--- NOTE | 2021-06-05 00:20 | NUR ---
ALERT OX4. DENIES SOA, CHEST PAIN OR DIZZY. NO GENERALIZED PAIN. PM MEDS GIVEN. POC DISCUSSED. CALL LIGHT WI REACH. AMB W WALKER TO BR, BM SOFT. NEEDS MET.
[2021-06-05 04:12] VITALS: BP 124/68; PULSE 90; TEMP 97.4
--- NOTE | 2021-06-05 05:40 | NUR ---
RESTED THROUGH THE NIGHT WITHOUT INCIDENT. NEEDS MET.
--- NOTE | 2021-06-05 13:40 | NUR ---
Contacted [facility] & spoke w/ Declan. Started the process of obtaining a bariatric walker w/ micheal prior to pt's d/c.
--- NOTE | 2021-06-05 15:00 | NUR ---
Patient has completed all therapies for the day and is sitting on side of bed. Patient denies pain at this time. Call light and bedside table are within reach.
[2021-06-05 17:20] VITALS: BP 122/66; PULSE 105; TEMP 97.6
--- NOTE | 2021-06-05 21:00 | NUR ---
PT RESTING IN BARIATRIC BED. CGA TO BR WITH WALKER. NIMCO WELL. PT ABLE TO GET IN AND OUT OF BED PER SELF. NO RESP DISTRESS. ABD ECCYMOSIS FROM LOVENOX INJECTIONS IMPROVING. NO COMPLAINTS VOICED. READY FOR SLEEP.
[2021-06-06 05:49] VITALS: BP 120/69; PULSE 88; TEMP 98.5
--- NOTE | 2021-06-06 06:56 | NUR ---
Report received from AWAIS العلي. Patient is sleep in bed. Call light and bedside table are within reach. Will continue to monitor patient throughout shift.
--- NOTE | 2021-06-06 13:50 | NUR ---
Patient has completed all therapies and is resting in bed. Patient denies pain at this time. Call light and bedside table are within reach.
[2021-06-06 17:00] VITALS: BP 82/67; PULSE 120; TEMP 97.7
--- NOTE | 2021-06-06 20:44 | NUR ---
PT RESTING IN BARIATRIC BED. VERY UNCOMFORTABLE TO BACK. WILL PLACE FOAM MATTRESS. NO FURTHER EPISODE OF DIARRHEA AFTER IMODIUM GIVEN EARLIER. PT REPORTED X3 STOOLS TODAYS.
[2021-06-07 05:04] VITALS: BP 117/72; PULSE 87; TEMP 98
--- NOTE | 2021-06-07 06:30 | NUR ---
AMB TO BR WITH WALKER WITH SBA. PT ABLE TO PERFORM OWN HYGENE. HAS HAD NO FURTHER EPISODES OF DIARRHEA.
--- NOTE | 2021-06-07 06:47 | NUR ---
Report received from AWAIS العلي. Patient is sleeping in bed. Call light and bedside table are within reach. Will continue to monitor patient throughout the shift.
[2021-06-07 18:00] VITALS: BP 117/72; PULSE 89; TEMP 97.5
--- NOTE | 2021-06-07 22:00 | NUR ---
ASSISTED PT TO BR. VOIDED W/O DIFFICULTY. NO DIARRHEA TODAY.
[2021-06-08 04:22] VITALS: BP 119/60; PULSE 83; TEMP 98.2
--- NOTE | 2021-06-08 06:59 | NUR ---
Report received from AWAIS العلي. Patient is sleeping in bed. Call light and bedside table are within reach. Will continue to monitor patient throughout shift.
--- NOTE | 2021-06-08 11:45 | NUR ---
Patient's mother is at bedside. Patient denies pain at this time. Call light and bedside table are within reach.
--- NOTE | 2021-06-08 15:00 | NUR ---
Patient's mother has left for the day.
[2021-06-08 18:00] VITALS: BP 105/89; PULSE 108; TEMP 97.9
--- NOTE | 2021-06-08 21:52 | NUR ---
SBA TO BR. NO NEEDS AT THIS TIME. RESTING IN BARIATRIC BED WITH FOAM MATTRESS FOR COMFORT.
[2021-06-09 04:38] VITALS: BP 109/80; PULSE 94; TEMP 97.7
--- NOTE | 2021-06-09 06:43 | NUR ---
Report received from AWAIS العلي. Patient is sleeping in bed. Call light and bedside table are within reach. Will continue to monitor patient throughout shift.
[2021-06-09 07:45] LABS: HEMATOCRIT 41.4 % (42.0-52.0); HEMOGLOBIN 13.2 g/dl (13.5-18.0); MEAN CELL VOLUME 94 fl (80.0-100.0); MEAN CORPUSCULAR HEMOGLOBIN 30 pg (27.0-31.0); MEAN CORPUSCULAR HGB CONC 32 g/dl (33.0-37.0); MEAN PLATELET VOLUME 11.4 fl (7.4-10.4); PLATELET COUNT 236 K/mm3 (130-400); RED BLOOD COUNT 4.39 M/mm3 (4.20-5.60); REDCELL DISTRIBUTION WIDTH-CV 16.6 % (11.5-14.5)
[2021-06-09 08:06] LABS: ALBUMIN 3.5 gm/dL (3.5-5.0); BILIRUBIN,TOTAL 0.6 mg/dL (0.0-1.0); CALCIUM 8.9 mg/dL (8.4-10.2); CREATININE, serum 0.69 (0.66-1.25); MAGNESIUM 1.6 mg/dL (1.6-2.3); POTASSIUM 3.8 mmol/L (3.4-5.0); TOTAL PROTEIN 5.8 gm/dL (6.4-8.2)
[2021-06-09 09:48] LABS: ANISOCYTOSIS 1+; BAND 4 % (0-10); BASOPHIL 3 % (0-2); EOSINOPHIL 6 % (0-4); HYPOCHROMIA 2+; LYMPHOCYTE 21 % (20.0-51.0); NEUTROPHILS 54 % (42.0-75.2); NUCLEATED RED BLOOD CELL 1 (0-6); PLATELET ESTIMATE NORMAL (NORMAL)
[2021-06-09 17:19] VITALS: BP 116/46; PULSE 99; TEMP 97.6
--- NOTE | 2021-06-09 20:00 | NUR ---
PATIENT IS ALERT AND ORIENTED X4. PATIENT WALKED TO BATHROOM USING WALKER. STEADY GAIT. GAIT BELT UTILIZED. PATIENT ON ADA DIET. PATIENT DENIES PAIN OR FURTHER NEEDS AT THIS TIME. CALL LIGHT WITHIN REACH. HEAD TO TOE ASSESSMENT COMPLETE.
[2021-06-10 05:32] VITALS: BP 123/68; PULSE 84; TEMP 98.1
--- NOTE | 2021-06-10 05:54 | NUR ---
PATIENT DID WELL THROUGHOUT THE NIGHT. SLEPT THE WHOLE NIGHT, DID NOT CALL OUT. PATIENT STILL SLEEPIING, DENIES FURTHER NEEDS AT THIS TIME. CALL LIGHT WITHIN REACH. WILL REPORT TO DAY SHIFT.
--- NOTE | 2021-06-10 13:28 | NUR ---
Faxed equipment order to [facility] [place] for the bariatric r/walker.
--- NOTE | 2021-06-10 13:42 | NUR ---
Visited w/ pt. He stated he has been doing well & has no issues concerns. We talked about possible upcoming d/c, which he is looking forward to. Told him that SW is working on getting him a r/walker. Pt had no questions or concerns at this time.
--- NOTE | 2021-06-10 14:05 | NUR ---
PT COMPLETED THERAPIES WITH SBAX1. PT DENIES NEEDS OR MEDS WHEN QUESTIONED. PT AMBULATING WITH THERAPY, SLOW STEADY GAIT. EATING AND DRINKING WITH NO N/V.
[2021-06-10 18:08] VITALS: BP 116/68; PULSE 107; TEMP 98.2
--- NOTE | 2021-06-10 21:24 | NUR ---
ALERT AND OX4. DENIES SOA, CHEST PAIN OR DIZZY. NO GENERAL PAIN. PM MEDS GIVEN. POC DISCUSSED. CALL LIGHT WI REACH. PT ANTICPATING TO BE DC WEDNESDAY AND IN [employer]. NEEDS MET.
[2021-06-11 06:53] VITALS: BP 164/79; PULSE 97; TEMP 98
--- NOTE | 2021-06-11 07:00 | NUR ---
Report received from AWAIS Hartmann.
--- NOTE | 2021-06-11 09:15 | NUR ---
Assessment charted. PT feeling well, states he is anxious to be able to discharge soon. Moving around well in room independently. Denies needs, will continue to monitor.
--- NOTE | 2021-06-11 15:56 | NUR ---
Reviewed team conference notes w/ pt. He stated he understood current level of functioning & agreed w/ it. Informed him of d/c for 06/17/21 w/ recommendations for home exercise program. Told him that SW is working on getting him a r/walker & inquired about the tub transfer bench which he stated that his mother is suppose to be getting today. He did not have any other questions or concerns at this time.
[2021-06-11 16:14] VITALS: BP 105/55; PULSE 115; TEMP 97.6
--- NOTE | 2021-06-11 18:20 | NUR ---
Pt has done well over shift, enjoys being mod I in room, on phone often and resting well between disturbances. Did have low WBG on check tonight but able to eat well and sugar now 100. Denies pain or other needs, will give report to [facility] nruse who will resume care.
--- NOTE | 2021-06-11 22:34 | NUR ---
PT MOD I IN ROOM. MANAGING WELL. NO NEEDS AT THIS TIME. NO RESP DIFFICULTIES.
[2021-06-12 04:12] VITALS: BP 132/75; PULSE 90; TEMP 97.4
--- NOTE | 2021-06-12 06:45 | NUR ---
Report received from AWAIS العلي. Patient is resting in bed and denies pain at this time. Call light and bedside table are within reach. Will continue to monitor patient throughout shift.
--- NOTE | 2021-06-12 10:20 | NUR ---
Contacted [facility] & spoke w/ Amisha. Was informed she did not have any information regarding the pt. She also stated that the bariatric walkers did not have wheels. Told her that SW will have to call her back.
--- NOTE | 2021-06-12 13:20 | NUR ---
Conducted family meeting w/ pt & mother. Also present was the PT, OT, ST, & SW/director of finance. The team talked about how pt has been doing & any concerns. Informed them of d/c for 06/17/21, w/ recommendation for home exercise program. They were fine w/ the plan. The mother expressed her concerns & fears about pt returning home, acknowledge this is to be expected but told her pt has has been doing well.
--- NOTE | 2021-06-12 14:30 | NUR ---
Patient has completed all therapies for the day. Patient's mother is at bedside. Call light and bedside table are within reach. Will continue to monitor patient throughout shift.
[2021-06-12 15:09] VITALS: BP 117/65; PULSE 97; TEMP 97.9
--- NOTE | 2021-06-12 15:45 | NUR ---
Patient's son is visiting with him at bedside.
--- NOTE | 2021-06-12 19:53 | NUR ---
PT SITTING ON SIDE OF BED. MOD I IN ROOM. LISTENING TO MUSIC. NO COMPLAINTS AT THIS TIME. NO RESP DISTRESS.
[2021-06-13 05:37] VITALS: BP 120/63; PULSE 65; TEMP 98.6
--- NOTE | 2021-06-13 10:28 | NUR ---
PT UP WITH THERAPY. EATING AND DRINKING NO N/V. VSS. PT IS A/O X3. WORKING WITH THERAPY. PT DENIES NEEDS AT THIS TIME, BG WELL CONTROLLED AT THIS TIME.
--- NOTE | 2021-06-13 13:39 | NUR ---
pt had an episode of loose stools, one immodium given per pt request
[2021-06-13 16:25] VITALS: BP 127/67; PULSE 100; TEMP 98
--- NOTE | 2021-06-13 19:12 | NUR ---
RECEIVED CHANGE OF SHIFT REPORT FROM DAY SHIFT NURSE.
--- NOTE | 2021-06-13 23:00 | NUR ---
PATIENT INDEPENDENT IN ROOM WITH NO REPORTED PROBLEMS OR CONCERNS. CALL LIGHT WITHIN REACH.
[2021-06-14 05:21] VITALS: BP 105/59; PULSE 86; TEMP 97.8
--- NOTE | 2021-06-14 07:11 | NUR ---
Report received from AWAIS Jose. Patient is awake and is resting in bed. Pain is 0/10. Will continue to monitor patient throughout shift.
--- NOTE | 2021-06-14 07:27 | NUR ---
CHANGE OF SHIFT REPORT GIVEN TO DAY SHIFT NURSE, BETHANY ERNANDEZ.
[2021-06-14 18:16] VITALS: BP 118/62; PULSE 102; TEMP 98
--- NOTE | 2021-06-14 19:22 | NUR ---
RECEIVED CHANGE OF SHIFT REPORT FROM DAY SHIFT NURSE.
--- NOTE | 2021-06-15 | NUR ---
PATIENT UP INDEPENDENTLY IN ROOM WITH NO REPORTED PROBLEMS OR CONCERNS. CALL LIGHT WITHIN REACH. DENIES ANY NEEDS OR CONCERNS SO FAR THIS SHIFT.
[2021-06-15 04:29] VITALS: BP 125/69; PULSE 86; TEMP 97.6
--- NOTE | 2021-06-15 07:01 | NUR ---
Report received from AWAIS Jose. Patient is resting in bed. Patient denies pain at this time. Call light and bedside table are witin reach. Will continue to monitor patient throughout shift.
--- NOTE | 2021-06-15 07:12 | NUR ---
CHANGE OF SHIFT REPORT GIVEN TO DAY SHIFT NURSE, BETHANY ERNANDEZ.
--- NOTE | 2021-06-15 13:00 | NUR ---
Patient's mother is bedside. Patient c/o watery stools after eating. Patient denies abdominal pain/cramping and requested something for the diarrhea. Patient is resing in bed. Call light and bedside table are within reach.
[2021-06-15 18:00] VITALS: BP 127/76; PULSE 105; TEMP 97.8
--- NOTE | 2021-06-15 19:31 | NUR ---
RECEIVED CHANGE OF SHIFT REPORT FROM DAY SHIFT NURSE. PATIENT UP IN ROOM INDEPENDENTLY WITH NO REPORTED PROBLEMS OR CONCERNS.
[2021-06-16 04:43] VITALS: BP 131/88; PULSE 80; TEMP 97.7
--- NOTE | 2021-06-16 07:06 | NUR ---
CHANGE OF SHIFT REPORT GIVEN TO DAY SHIFT NURSE, THU ERNANDEZ. PATIENT UP IN ROOM INDEPENDENTLY WITH NO REPORTED PROBLEMS OR CONCERNS.
--- NOTE | 2021-06-16 07:09 | NUR ---
shift report received from AWAIS Elliott
--- NOTE | 2021-06-16 07:50 | NUR ---
has had breakfast and tolerated well, and was up to bathroom, now resting in bed, full assessment completed, see interventions for further info
--- NOTE | 2021-06-16 09:17 | NUR ---
physical thrapy in working with patient
--- NOTE | 2021-06-16 10:30 | NUR ---
speech therapy in and working with jameel
--- NOTE | 2021-06-16 11:51 | NUR ---
called nurse and stated he was having frequent urination with burning, Dr Isaacs notified
--- NOTE | 2021-06-16 12:47 | NUR ---
voided approx 25ml cloud yellow urine, specimen to the lab
--- NOTE | 2021-06-16 13:04 | NUR ---
ambulating in [place] with physical therapy
[2021-06-16 13:06] LABS: COLLECTION METHOD CLEAN CATCH
[2021-06-16 13:17] LABS: AMORPHOUS CRYSTAL Present /uL; MUCOUS Present /lpf; PH 5 (5-8); SQUAMOUS EPITHELIAL 0-2 /hpf; URINE APPEARANCE Turbid; URINE BACTERIA Rare /hpf; URINE BILIRUBIN Negative (NEGATIVE); URINE BLOOD 3+ (NEGATIVE); URINE COLOR Yellow; URINE GLUCOSE Negative (NEGATIVE); URINE KETONE Negative (NEGATIVE); URINE LEUKOCYTE ESTERASE 2+ (NEGATIVE); URINE NITRATE Negative (NEGATIVE); URINE PROTEIN(semi-quant) 2+ (NEGATIVE); URINE RBC >50 /hpf; URINE UROBILINOGEN Negative (NEGATIVE)
--- NOTE | 2021-06-16 14:09 | NUR ---
Visited w/ pt & pt's mother about d/c plans tomorrow, 06/17/21. Told them that pt can leave any time after lunch, as the r/walker should be delivered prior to lunch. Told them the team is recommending home exercise program. They had no other questions or concerns at this time.
--- NOTE | 2021-06-16 14:53 | NUR ---
medicated with immodium 2mg per his request
[2021-06-16 15:12] LABS: BASO # 0.1 (0.0-0.2); BASO % 0.9 % (0.0-2.0); EOS # 0.6 (0.0-0.7); EOS % 4.6 % (0-4.0); GRAN # 7.8 (1.4-6.5); GRAN % 64.8 % (42.2-75.2); HEMOGLOBIN 14.9 g/dl (13.5-18.0); LYMPH # 2.2 (1.2-3.4); LYMPH % 18.6 % (20.0-51.0); MEAN CELL VOLUME 92 fl (80.0-100.0); MEAN CORPUSCULAR HEMOGLOBIN 31 pg (27.0-31.0); MEAN CORPUSCULAR HGB CONC 33 g/dl (33.0-37.0); MEAN PLATELET VOLUME 11.5 fl (7.4-10.4); MONO # 1.2 (0.1-0.6); MONO % 10.3 % (1.7-9.3); PLATELET COUNT 294 K/mm3 (130-400); RED BLOOD COUNT 4.88 M/mm3 (4.20-5.60); REDCELL DISTRIBUTION WIDTH-CV 15.9 % (11.5-14.5)
[2021-06-16 15:24] LABS: CALCIUM 9.3 mg/dL (8.4-10.2); CREATININE, serum 0.78 (0.66-1.25)
--- NOTE | 2021-06-16 16:24 | NUR ---
resting in bed looking at his phone, family at bedside
[2021-06-16 17:31] VITALS: BP 100/58; PULSE 82; TEMP 97.5
--- NOTE | 2021-06-16 19:11 | NUR ---
shift report given to AWAIS Gerardo
[2021-06-17 05:43] VITALS: BP 150/85; PULSE 83; TEMP 98
--- NOTE | 2021-06-17 07:08 | NUR ---
Report received from AWAIS Gerardo. Patient is resting in bed watching his phone and denies pain at this time. Patient is excited because he is going home today. Call light and bedside table are within reach. Will continue to monitor patient throughout shift.
[2021-06-17] MEDS ORDERED: CIPRO 500MG TA500 MG PO (08:47)
[2021-06-17] MEDS ORDERED: ZESTRIL 5MG5 MG PO (08:48)
[2021-06-17] MEDS ORDERED: PROAIR HFA0.09 MG/AC IH (08:48)
[2021-06-17] MEDS ORDERED: DESITIN MAXIMUM S40% TP (08:49)
--- NOTE | 2021-06-17 09:08 | NUR ---
Visited w/ pt regarding d/c for today, 06/17/21. He has no questions or concerns about his d/c. Reminded him that a bariatric r/walker will be delivered before lunch. He was thankful for everything that the team has helped & done for him.
--- NOTE | 2021-06-17 11:00 | NUR ---
Patient health summary, discharge summary and home medications printed and reviewed with patient. Stressed importance of follow up appointments. Reviewed medications. Belongings gathered by patient's mother including cell phone and hoop maker. Patient transported via by AWAIS Rvias and seatbelted for ride home. Patient denied any further questions.
== END 2021-06-17 11:00 | disposition home or self-care (01) | DRG 91 ==
PROVIDERS: Physician Assistant; ADMIT Internal Medicine
DX: G72.81 Critical illness myopathy (principal); U07.1 COVID-19; J96.01 Acute respiratory failure with hypoxia; J12.82 Pneumonia due to coronavirus disease 2019; R65.10 Systemic inflammatory response syndrome (SIRS) of non-infectious origin without acute organ dysfunction; K92.1 Melena; N39.0 Urinary tract infection, site not specified; R13.10 Dysphagia, unspecified; I10 Essential (primary) hypertension; E11.65 Type 2 diabetes mellitus with hyperglycemia; R74.01 Elevation of levels of liver transaminase levels; E66.01 Morbid (severe) obesity due to excess calories; R53.81 Other malaise; Z79.4 Long term (current) use of insulin; Z68.39 Body mass index [BMI] 39.0-39.9, adult; R19.7 Diarrhea, unspecified; R36.9 Urethral discharge, unspecified; Z79.899 Other long term (current) drug therapy; Z73.6 Limitation of activities due to disability; R26.89 Other abnormalities of gait and mobility; Z80.9 Family history of malignant neoplasm, unspecified; Z82.5 Family history of asthma and other chronic lower respiratory diseases; M79.662 Pain in left lower leg; Z79.52 Long term (current) use of systemic steroids
CPT/HCPCS: 99222-AI; 99231-AI; 99232-AI; 99233-AI; 99239; J1650; J1815; J8540